=== PATIENT | female | born 1950 | race Caucasian/White ===

== ENCOUNTER → 2017-12-08 | Outpatient (CLI) | payer MEDICARE | END | disposition home or self-care (01) | LOC: LABWHC1 11:04 | PROVIDERS: ATTEND Internal Medicine Endocrinology, Diabetes & Metabolism | DX: E03.8 Other specified hypothyroidism (principal) | CPT/HCPCS: 36415; 84443 ==

== ENCOUNTER → 2018-06-10 | Outpatient (CLI) | payer MEDICARE ==
[2018-06-10 16:34] LABS: ACTH 14.8 pg/mL (0.00-45.99)
== END | disposition home or self-care (01) ==
LOC: LABWHC1 10:22
PROVIDERS: ATTEND Internal Medicine Endocrinology, Diabetes & Metabolism
DX: E03.8 Other specified hypothyroidism (principal); R53.83 Other fatigue
CPT/HCPCS: 36415; 82024; 82533; 82607; 84146; 84443

== ENCOUNTER 2018-06-22 02:24 | Emergency (ER) | payer MEDICARE ==
[2018-06-22] MEDS ORDERED: KETOROLAC 30 MG/ML 1 ML VIAL IVP STA (02:58)
[2018-06-22] MEDS ORDERED: AMPICILLIN-SULBACTAM 3 GM in SODIUM CHLORIDE 0.9% 100 ML IVPB STA (03:00)
--- NOTE | 2018-06-22 03:32 | XR ---
EXAMINATION TYPE: XR hand complete LT DATE OF EXAM: 06/22/2018 COMPARISON: NONE HISTORY: Cat bite on thumb TECHNIQUE: 3 views FINDINGS: There is moderate narrowing and spurring at the first carpometacarpal joint. I see no fract ure nor dislocation. There is some mild spurring at the IP joints. There are no erosions. IMPRESSION: No fracture seen. Osteoarthritic changes.
--- NOTE | 2018-06-22 03:36 | ED ---
Animal Bite HPI - General Chief Complaint: Animal Bite Stated Complaint: Cat Bite to Hand Time Seen by Provider: 06/22/18 02:43 Source: patient Mode of arrival: ambulatory Limitations: physical limitation - History of Present Illness Initial Comments: 67-year-old female patient with past medical history significant for hypothyroidism presents to the emergency department today for evaluation of increased pain and swelling to her hand after a Bite sustained Friday. Patient states this evening the area started to become red and swollen. Patient states pain woke her from sleep. States she is having pain radiating across her dorsal hand and into her forearm. She denies any fevers or chills with this. Denies any drainage from the wounds. Denies any nausea or vomiting. She denies any history of diabetes or conditions causing her to be immunocompromised. Patient denies any recent rash, shortness breath, chest pain, abdominal pain, nausea, vomiting, diarrhea, constipation, back pain, numbness, tingling, dizziness, weakness, hematuria, dysuria, urinary urgency, urinary frequency, headache, visual changes, or any other complaints. - Related Data Home Medications Medication Instructions Recorded Confirmed Thyroid,Pork [[place] Thyroid] 1 tab PO DIRECTED 09/28/15 09/28/15 Previous Rx's Medication Instructions Recorded Doxycycline Hyclate 100 mg PO Q12H #20 tab 06/22/18 Ibuprofen [Motrin] 600 mg PO Q8HR PRN #30 tab 06/22/18 Allergies Allergy/AdvReac Type Severity Reaction Status Date / Time No Known Allergies Allergy Verified 06/22/18 02:42 Review of Systems ROS Statement: Those systems with pertinent positive or pertinent negative responses have been documented in the HPI. ROS Other: All systems not noted in ROS Statement are negative. Past Medical History Past Medical History: Thyroid Disorder History of Any Multi-Drug Resistant Organisms: None Reported Past Surgical History: Joint Replacement, Orthopedic Surgery Additional Past Surgical History / Comment(s): breast reduction, abdominoplasty , carpal tunnel Past Psychological History: No Psychological Hx Reported Smoking Status: Never smoker Past Alcohol Use History: None Reported Past Drug Use History: None Reported General Exam Limitations: physical limitation General appearance: alert, in no apparent distress, other (This is a well- developed, well-nourished adult female patient in no acute distress. Vital signs upon presentation are temperature 98.4F, pulse 74, respirations 16, blood pressure 159/89, pulse ox 99% on room air.) Eye exam: Present: normal appearance, PERRL, EOMI. Absent: scleral icterus, conjunctival injection, periorbital swelling ENT exam: Present: normal exam, normal oropharynx, mucous membranes moist Respiratory exam: Present: normal lung sounds bilaterally. Absent: respiratory distress, wheezes, rales, rhonchi, stridor Cardiovascular Exam: Present: regular rate, normal rhythm, normal heart sounds. Absent: systolic murmur, diastolic murmur, rubs, gallop, clicks Extremities exam: Present: full ROM, normal capillary refill, other (Patient has swelling and erythema noted circumferentially to the left thumb. There is soft tissue swelling noted to the dorsal hand. There is faint erythematous streak extending up the volar aspect of the wrist proximally one third of the forearm. Skin is otherwise pink, warm, dry. Patient has full range of motion to the hand without increased pain. Radial pulses 2+ and equal bilaterally.). Absent: normal inspection, tenderness, pedal edema, joint swelling, calf tenderness Neurological exam: Present: alert, oriented X3, CN II-XII intact Psychiatric exam: Present: normal affect, normal mood Skin exam: Present: warm, dry, intact, normal color. Absent: rash Course Vital Signs 06/22/18 02:39 Temperature 98.4 F Pulse Rate 74 Respiratory 16 Rate Blood Pressure 159/89 O2 Sat by Pulse 99 Oximetry Medical Decision Making - Medical Decision Making 67-year-old female patient presents to the emergency department today for evaluation of left hand pain and swelling after sustaining a Bite on Friday morning. Physical examination did reveal swelling and redness surrounding the left thumb extending into the dorsal surface of the hand. Patient also had very faint erythematous streaking up the volar surface of the wrist. Neurovascular status is intact. Patient had full range of motion. Patient was given an IV dose of Unasyn and Toradol here in the department. Upon reevaluation she is feeling improved. She'll be discharged home with prescription for doxycycline, she states that Augmentin makes her sick. She is instructed to follow-up with her primary care physician for recheck in 1-2 days. Patient was given extensive education regarding return parameters. She verbalizes understanding and agrees with this plan - Radiology Data Radiology results: report reviewed, image reviewed 3 views of the left hand are obtained. Report was reviewed in its entirety. Impression by Dr. Fenton shows no fracture. Osteoarthritic changes. I did review the x-ray there is no evidence of foreign body or subcutaneous air. Disposition Clinical Impression: Cat bite involving extremity, Cellulitis Disposition: HOME SELF-CARE Condition: Good Instructions: Animal Bite (ED) Additional Instructions: Take medication as directed. Follow-up with the primary care physician for recheck in 1-2 days. Return immediately if he develops fever, vomiting, worsening pain, or worsening swelling. Return immediately for any other new, worsening, or concerning symptoms. Prescriptions: Doxycycline Hyclate 100 mg PO Q12H #20 tab Ibuprofen [Motrin] 600 mg PO Q8HR PRN #30 tab PRN Reason: Pain Is patient prescribed a controlled substance at d/c from ED?: No Referrals: Pola Kwok MD [Primary Care Provider] - 1-2 days Time of Disposition: 04:06
[2018-06-22] MEDS ORDERED: IBUPROFEN 600 MG STARTER PACK 4 TAB BTL PO STA (04:07)
[2018-06-22] MEDS ORDERED: AMOXIC-POT CLAV 875MG STARTER 2 EACH TABLET PO STA (04:07)
[2018-06-22 04:48] VITALS: BP 160/74; PULSE 62; RESP 20; TEMP 98.1
== END 2018-06-22 04:49 | disposition home or self-care (01) ==
LOC: EC 02:24
DX: L03.114 Cellulitis of left upper limb (principal); M19.042 Primary osteoarthritis, left hand; E07.9 Disorder of thyroid, unspecified; Z79.899 Other long term (current) drug therapy; W55.01XA Bitten by cat, initial encounter
CPT/HCPCS: 73130; 99283; 96365; 96375; J1885; J0295

== ENCOUNTER 2018-06-23 08:56 | Inpatient (IN) | payer MEDICARE ==
[2018-06-23] MEDS ORDERED: MORPHINE SULFATE 4 MG/ML SYRINGE IV STA (09:42)
[2018-06-23] MEDS ORDERED: AMPICILLIN-SULBACTAM 3 GM in SODIUM CHLORIDE 0.9% 100 ML IVPB STA (09:42)
[2018-06-23] MEDS ORDERED: SODIUM CHLORIDE 0.9% 1,000 ML IV ONE (09:42)
[2018-06-23] MEDS ORDERED: BENZOCAINE SPRAY 1 CAN TOPICAL STA (10:10)
--- NOTE | 2018-06-23 10:24 | ED ---
Skin/Abscess/FB HPI - General Chief complaint: Skin/Abscess/Foreign Body Stated complaint: cellulitis re-check Time Seen by Provider: 06/23/18 09:17 Source: patient, RN notes reviewed, old records reviewed Mode of arrival: ambulatory Limitations: no limitations - History of Present Illness Initial comments: 59-year-old female presents emergency department today with chief complaint of increased pain over her left hand. She was bit by a cat 3 days ago. She seen in the emergency department yesterday given a dose of IV Unasyn and discharged on oral Augmentin. She's been taking the Augmentin for the past day. She completed increased pain and swelling today. Patient states that she's had previous orthopedic hand surgery by Dr. Mari. Patient presents with concerns for worsening cellulitis. She's had no fevers or chills. She reports severe pain with flexion and extension of the left digits. - Related Data Home Medications Medication Instructions Recorded Confirmed Thyroid,Pork [[place] Thyroid] 60 mg PO DAILY 09/28/15 06/23/18 Amoxic-Pot Clav 875-125Mg 1 tab PO Q12HR 06/23/18 06/23/18 [Augmentin 875-125] Previous Rx's Medication Instructions Recorded Ibuprofen [Motrin] 600 mg PO Q8HR PRN #30 tab 06/22/18 Allergies Allergy/AdvReac Type Severity Reaction Status Date / Time No Known Allergies Allergy Verified 06/23/18 09:36 Review of Systems ROS Statement: Those systems with pertinent positive or pertinent negative responses have been documented in the HPI. ROS Other: All systems not noted in ROS Statement are negative. Past Medical History Past Medical History: Thyroid Disorder History of Any Multi-Drug Resistant Organisms: None Reported Past Surgical History: Joint Replacement, Orthopedic Surgery Additional Past Surgical History / Comment(s): breast reduction, abdominoplasty , carpal tunnel Past Psychological History: No Psychological Hx Reported Smoking Status: Never smoker Past Alcohol Use History: None Reported Past Drug Use History: None Reported General Exam - General Exam Comments Initial Comments: 59-year-old female. Alert and oriented. No distress. Limitations: no limitations General appearance: alert, in no apparent distress Head exam: Present: atraumatic, normocephalic, normal inspection Eye exam: Present: normal appearance, PERRL, EOMI. Absent: scleral icterus, conjunctival injection, periorbital swelling ENT exam: Present: normal exam, mucous membranes moist Neck exam: Present: normal inspection. Absent: tenderness, meningismus, lymphadenopathy Respiratory exam: Present: normal lung sounds bilaterally. Absent: respiratory distress, wheezes, rales, rhonchi, stridor Cardiovascular Exam: Present: regular rate, normal rhythm, normal heart sounds. Absent: systolic murmur, diastolic murmur, rubs, gallop, clicks GI/Abdominal exam: Present: soft, normal bowel sounds. Absent: distended, tenderness, guarding, rebound, rigid Extremities exam: Present: normal inspection, full ROM, normal capillary refill. Absent: tenderness, pedal edema, joint swelling, calf tenderness Left Upper Arm exam: Present: normal inspection, full ROM Elbow exam: Present: normal inspection, full ROM Forearm Wrist exam: Present: full ROM, tenderness, swelling, erythema (Patient has erythema and swelling over the dorsum of the hand. Pain with flexion and extension of the fingers.). Absent: normal inspection Hand Wrist exam: Present: tenderness, swelling. Absent: normal inspection Vascular: Present: normal capillary refill Back exam: Present: normal inspection Neurological exam: Present: alert, oriented X3, CN II-XII intact Psychiatric exam: Present: normal affect, normal mood Skin exam: Present: warm, dry, intact, normal color. Absent: rash Course Vital Signs 06/23/18 08:58 Temperature 98.0 F Pulse Rate 71 Respiratory 18 Rate Blood Pressure 165/62 O2 Sat by Pulse 99 Oximetry Medical Decision Making - Medical Decision Making Patient is a 67-year-old female who presents emergency department today with left wrist pain and swelling after being Bit by a cat 3 days ago. She was seen in the emergency department yesterday given a dose of IV Unasyn and oral Augmentin for discharge. She taken 2 doses of oral Augmentin. She comes today for persistent pain in the hand pain with range of motion of the fingers. Patient was informed that with outpatient treatment continuing to fail Patient will be admitted for IV antibiotics. She was a very difficult IV stick due to severe anxiety. She was given Ativan and a dose of morphine for pain management. X-ray does show some increased soft tissue swelling over the dorsum of the hand. Patient has had a normal white blood cell count. Normal lactic acid. She has previously seen Dr. Wilkinson for orthopedic hand injury and surgeries in the past. She will per request to see orthopedic associates. Patient was started on IV Unasyn. Dr. Lanza discussed the case with the KARLENE Orellana for Dr. Kwok. Patient will be admitted at this time with IV Unasyn, rest, ice and elevating the arm. And consult to infectious disease as well as orthopedics. - Lab Data Result diagrams: 06/23/18 12:32 06/23/18 09:57 Lab Results 06/23/18 06/23/18 06/23/18 Range/Units 09:57 09:57 12:32 WBC 10.4 (3.8-10.6) k/uL RBC 3.77 L (3.80-5.40) m/uL Hgb 11.7 (11.4-16.0) gm/dL Hct 35.3 (34.0-46.0) % MCV 93.6 (80.0-100.0) fL MCH 31.0 (25.0-35.0) pg MCHC 33.1 (31.0-37.0) g/dL RDW 12.6 (11.5-15.5) % Plt Count 224 (150-450) k/uL Neutrophils % 85 % Lymphocytes % 8 % Monocytes % 5 % Eosinophils % 1 % Basophils % 0 % Neutrophils # 8.8 H (1.3-7.7) k/uL Lymphocytes # 0.8 L (1.0-4.8) k/uL Monocytes # 0.5 (0-1.0) k/uL Eosinophils # 0.1 (0-0.7) k/uL Basophils # 0.0 (0-0.2) k/uL Sodium 140 (137-145) mmol/L Potassium 5.3 H (3.5-5.1) mmol/L Chloride 109 H (98-107) mmol/L Carbon Dioxide 27 (22-30) mmol/L Anion Gap 4 mmol/L BUN 15 (7-17) mg/dL Creatinine 0.58 (0.52-1.04) mg/dL Est GFR (CKD-EPI)AfAm >90 (>60 ml/min/1.73 sqM) Est GFR (CKD-EPI)NonAf >90 (>60 ml/min/1.73 sqM) Glucose 93 (74-99) mg/dL Plasma Lactic Acid Xander 1.1 (0.7-2.0) mmol/L Calcium 9.9 (8.4-10.2) mg/dL Total Bilirubin 0.9 (0.2-1.3) mg/dL AST 47 H (14-36) U/L ALT 39 (9-52) U/L Alkaline Phosphatase 55 (38-126) U/L Total Protein 6.9 (6.3-8.2) g/dL Albumin 4.3 (3.5-5.0) g/dL - Radiology Data Radiology results: report reviewed Demineralization is redemonstrated on x-ray. There is no acute fracture dislocation. Persistent moderate narrowing of the first metatarsal subchondral cystic space. Mild to moderate degenerative changes throughout the phalanges with narrowing of the PIP and DIP joints. There is mild to moderate diffuse subcutaneous edema present slightly more prominent from prior study near the wrist level. No suspicious vertical destruction. Ostial reaction is seen. Mild to moderate narrowing with radial side spurring seen in the first interphalangeal joint is again seen. This was read by Dr. Vaca Disposition Clinical Impression: Cat bite involving extremity, Cellulitis, Failure of outpatient treatment Disposition: ADMITTED IP TO THIS HOSP Condition: Stable Is patient prescribed a controlled substance at d/c from ED?: No Referrals: Pola Kwok MD [Primary Care Provider] - 1-2 days Time of Disposition: 13:06
[2018-06-23 10:27] LABS: ALT 39 U/L (9-52); AST 47 U/L (14-36); Albumin 4.3 g/dL (3.5-5.0); Alkaline Phosphatase 55 U/L (38-126); Anion Gap 4 mmol/L; Blood Urea Nitrogen 15 mg/dL (7-17); Calcium 9.9 mg/dL (8.4-10.2); Carbon Dioxide 27 mmol/L (22-30); Chloride 109 mmol/L (98-107); Glucose 93 mg/dL (74-99); Sodium 140 mmol/L (137-145); Total Bilirubin 0.9 mg/dL (0.2-1.3); Total Protein 6.9 g/dL (6.3-8.2)
[2018-06-23 10:33] LABS: Potassium 5.3 mmol/L (3.5-5.1)
[2018-06-23] MEDS ORDERED: LORazepam 1 MG TAB PO STA (10:56)
--- NOTE | 2018-06-23 11:31 | XR ---
EXAMINATION TYPE: XR hand complete LT DATE OF EXAM: 06/23/2018 CLINICAL HISTORY: Pain swelling and redness after catheter biting from 3 days ago. TECHNIQUE: Frontal, lateral and oblique images of the left hand are obtained. COMPARISON: Left hand x-ray from yesterday. FINDINGS: Demineralization is redemonstrated. There is no acute fracture/dislocation evident in the l eft hand. There is persistent moderate narrowing at base of first metacarpal with subchondral cystic change. Mild to moderate degenerative change throughout the phalanges with narrowing of the PIP and D IP joints is redemonstrated. Mild to moderate diffuse subcutaneous edema is present slightly more pro minent from prior study proximally near wrist level. No suspicious new cortical destruction or perios teal reaction is seen. Mild to moderate narrowing with radial side spurring first interphalangeal abbi nt is again seen. IMPRESSION: As above.
[2018-06-23 12:52] LABS: Basophils % (A) 0 %; Eosinophils # (A) 0.1 k/uL (0-0.7); Eosinophils % (A) 1 %; HCT 35.3 % (34.0-46.0); HGB 11.7 gm/dL (11.4-16.0); Lymphocytes # (A) 0.8 k/uL (1.0-4.8); Lymphocytes % (A) 8 %; MCHC 33.1 g/dL (31.0-37.0); MCV 93.6 fL (80.0-100.0); Mean Platelet Volume 7.9; Monocytes # (A) 0.5 k/uL (0-1.0); Monocytes % (A) 5 %; Neutrophils # (A) 8.8 k/uL (1.3-7.7); Neutrophils % (A) 85 %; Platelet Count 224 k/uL (150-450); RBC 3.77 m/uL (3.80-5.40); RDW 12.6 % (11.5-15.5); WBC 10.4 k/uL (3.8-10.6)
[2018-06-23] MEDS ORDERED: ONDANSETRON 4 MG/2 ML VIAL IVP PRN (13:06)
[2018-06-23] MEDS ORDERED: IBUPROFEN 400 MG TAB PO PRN (13:06)
[2018-06-23] MEDS ORDERED: NALOXONE 0.4 MG/ML 1 ML VIAL IV PRN (13:06)
[2018-06-23] MEDS: AMPICILLIN-SULBACTAM 3 GM in SODIUM CHLORIDE 0.9% 100 ML IVPB SCH ×2 (15:13→21:25)
[2018-06-23] MEDS: MORPHINE SULFATE 4 MG/ML SYRINGE IV PRN ×2 (15:13→20:11)
--- NOTE | 2018-06-23 15:35 | P.HPIM ---
History of Present Illness H&P Date: 06/23/18 Chief Complaint: Scratch failed outpatient treatment This is a 67-year-old pleasant female will be seeing Dr. Vaughan who will be establishing with Dr. Cummings in the clinic, healthy with history of hyperthyroidism, admitted to the emergency room after she was bitten by a cat 3 days ago most likely this Is to, and was started on Unasyn and discharged on Augmentin yesterday. Patient took the Augmentin for the past one day, she complained of increasing pain and swelling, this was a previous orthopedic surgery procedure performed by Dr. Mari in the past. Patient is now complaining of increasing difficulty in using the digits of the left hand secondary to swelling and redness. Patient denies any history off drug- resistant microbes in the past, no history of Raynaud's, no history of diabetes mellitus.. In emergency room, x-rays have been performed with significant subcutaneous edema, involving the PIP DIP, no osteomyelitis noted Review of Systems Constitutional: Reports as per HPI, Denies anorexia, Denies chills, Denies chronic headaches, Denies chronic pain, Denies daytime sleepiness, Denies fatigue, Denies fever, Denies lethargy, Denies malaise, Denies night sweats, Denies poor appetite, Denies sweats, Denies weakness, Denies weight gain, Denies weight loss Ears, nose, mouth and throat: Reports as per HPI, Denies ant. neck pain, Denies bleeding gums, Denies dental pain, Denies dysphagia, Denies epistaxis, Denies headache, Denies hoarseness, Denies mouth pain, Denies nasal congestion, Denies nasal discharge, Denies neck fullness/pressure, Denies neck lump, Denies nose pain, Denies odynophagia, Denies post-nasal drip, Denies sinus pain, Denies sinus pressure, Denies swelling in mouth, Denies swelling in throat, Denies sore throat, Denies vertigo, Denies voice changes Cardiovascular: Reports as per HPI Respiratory: Reports as per HPI, Denies congestion, Denies cough, Denies cough with sputum, Denies dyspnea, Denies excessive sputum, Denies hemoptysis, Denies home oxygen, Denies pain, Denies pain on inspiration, Denies pleurisy, Denies respiratory infections, Denies sleep apnea, Denies snoring, Denies wheezing Gastrointestinal: Reports as per HPI, Denies abdominal pain, Denies belching, Denies bloating, Denies BRBPR, Denies change in bowel habits, Denies coffee ground emesis, Denies constipation, Denies diarrhea, Denies dyspepsia, Denies early satiety, Denies excessive gas, Denies heartburn, Denies hematemesis, Denies hematochezia, Denies indigestion, Denies jaundice, Denies lactose intolerance, Denies loss of appetite, Denies melena, Denies nausea, Denies vomiting Genitourinary: Reports as per HPI, Denies abnormal vaginal bleeding, Denies decreased libido, Denies difficulty conceiving, Denies difficulty voiding, Denies dysmenorrhea, Denies dyspareunia, Denies dysuria, Denies flank pain, Denies genital sores, Denies hematuria, Denies hot flashes, Denies incomplete emptying, Denies kidney stones, Denies menorrhagia, Denies mixed incontinence, Denies nocturia, Denies pelvic pain, Denies post void dribbling, Denies , Denies prolapse symptoms, Denies stress incontinence, Denies urge incontinence , Denies urgency, Denies urinary frequency, Denies vaginal discharge, Denies vaginal dryness, Denies vaginal itching, Denies vaginal odor Menstruation: Reports as per HPI, Denies amenorrhea, Denies amenorrhea on BC, Denies currently menstrual, Denies cycle < 21 days, Denies cycle > 35 days, Denies cycle variable, Denies menses 1-7 days, Denies menses 8 or > days, Denies menses variable, Denies period heavy, Denies period light, Denies period normal, Denies period spotting, Denies post hysterectomy, Denies postmenopausal , Denies premenarcheal Musculoskeletal: Reports as per HPI Integumentary: Reports as per HPI, Reports color changes, Reports rash, Reports sores Neurological: Reports as per HPI, Denies aphasia, Denies ataxia, Denies balance difficulties, Denies burning pain, Denies change in mentation, Denies change in smell/taste, Denies change in speech, Denies confusion, Denies convulsions, Denies double vision, Denies gait dysfunction, Denies head injury, Denies headaches, Denies hearing difficulties, Denies lack of coordination, Denies loss of vision, Denies memory loss, Denies migraines, Denies motor disturbance, Denies numbness, Denies paralysis, Denies paresthesias, Denies seizures, Denies sensory deficit, Denies spasticity, Denies syncope, Denies tic, Denies tingling , Denies transient paralysis, Denies tremors, Denies vertigo, Denies weakness, Denies visual changes Psychiatric: Reports as per HPI, Denies anhedonia, Denies anxiety, Denies anxiety attacks, Denies change in appetite, Denies change in libido, Denies change in sleep habits, Denies confusion, Denies depression, Denies difficulty concentrating, Denies disorientation, Denies hallucinations, Denies hopelessness , Denies hypersomnia, Denies insomnia, Denies irritability, Denies memory loss, Denies mood swings, Denies paranoia, Denies sadness/tearfulness, Denies sleep disturbances, Denies suicidal ideation Endocrine: Reports as per HPI Hematologic/Lymphatic: Reports as per HPI Allergic/Immunologic: Reports as per HPI, Denies allergic rhinitis, Denies anaphylaxis, Denies angioedema, Denies gluten intolerance, Denies persistent infections, Denies seasonal allergies, Denies urticaria, Denies wheezing Past Medical History Past Medical History: Eye Disorder, Osteoarthritis (OA), Thyroid Disorder Additional Past Medical History / Comment(s): Pt states she recently had bilateral eye retinal problems (R retina started to tear but readhered itself and L retina started to tear and developed a hole in it but she was told it was healing), arthritis in multiple joints, spur in R ankle, sciatica R side with R foot numbness and R leg spasms. History of Any Multi-Drug Resistant Organisms: None Reported Past Surgical History: Joint Replacement, Orthopedic Surgery Additional Past Surgical History / Comment(s): Bilateral breast reduction, abdominoplasty, L carpal tunnel release, L knee arthroscopy, L knee partial replacement. Past Anesthesia/Blood Transfusion Reactions: No Reported Reaction Smoking Status: Never smoker - Past Family History Father History Unknown: Yes Mother Family Medical History: Liver Disease Additional Family Medical History / Comment(s): Mother had hepatitis d/t a complication with anesthesia, she also had ulcers. Medications and Allergies Home Medications Medication Instructions Recorded Confirmed Type Thyroid,Pork [[place] Thyroid] 60 mg PO DAILY 09/28/15 06/23/18 History Ibuprofen [Motrin] 600 mg PO Q8HR PRN #30 tab 06/22/18 06/23/18 Rx Amoxic-Pot Clav 875-125Mg 1 tab PO Q12HR 06/23/18 06/23/18 History [Augmentin 875-125] Allergies Allergy/AdvReac Type Severity Reaction Status Date / Time No Known Allergies Allergy Verified 06/23/18 09:36 Physical Exam Vitals: Vital Signs Temp Pulse Resp BP Pulse Ox 06/23/18 13:46 145/76 06/23/18 08:58 98.0 F 71 18 165/62 99 Intake and Output 06/23/18 06/23/18 06/23/18 06:59 14:59 22:59 Other: Weight 49.442 kg - Constitutional General appearance: cooperative, thin - Neck Neck: normal ROM - Respiratory Respiratory: bilateral: CTA, negative: diminished, dullness - Cardiovascular Rhythm: regular Heart sounds: normal: S1, S2 Abnormal Heart Sounds: no systolic murmur, no diastolic murmur, no rub, no S3 Gallop, no S4 Gallop, no click, no other - Gastrointestinal General gastrointestinal: normal bowel sounds, soft - Integumentary Integumentary: cellulitis (Circumferential redness involving the volar aspect of the arm), decreased turgor, normal - Neurologic Neurologic: CNII-XII intact, focal deficits - Musculoskeletal Musculoskeletal: gait normal - Psychiatric Psychiatric: A&O x's 3, appropriate affect, intact judgment & insight Results CBC & Chem 7: 06/23/18 12:32 06/23/18 09:57 Labs: Abnormal Lab Results - Last 24 Hours (Table) 06/23/18 06/23/18 Range/Units 09:57 12:32 RBC 3.77 L (3.80-5.40) m/uL Neutrophils # 8.8 H (1.3-7.7) k/uL Lymphocytes # 0.8 L (1.0-4.8) k/uL Potassium 5.3 H (3.5-5.1) mmol/L Chloride 109 H (98-107) mmol/L AST 47 H (14-36) U/L Laboratory Results WBC 10.4 k/uL (3.8-10.6) 06/23/18 12:32 RBC 3.77 m/uL (3.80-5.40) L 06/23/18 12:32 Hgb 11.7 gm/dL (11.4-16.0) 06/23/18 12:32 Hct 35.3 % (34.0-46.0) 06/23/18 12:32 MCV 93.6 fL (80.0-100.0) 06/23/18 12:32 MCH 31.0 pg (25.0-35.0) 06/23/18 12: MCHC 33.1 g/dL (31.0-37.0) 06/23/18 12:32 RDW 12.6 % (11.5-15.5) 06/23/18 12:32 Plt Count 224 k/uL (150-450) 06/23/18 12:32 Neutrophils % 85 % 06/23/18 12:32 Lymphocytes % 8 % 06/23/18 12:32 Monocytes % 5 % 06/23/18 12:32 Eosinophils % 1 % 06/23/18 12:32 Basophils % 0 % 06/23/18 12:32 Neutrophils # 8.8 k/uL (1.3-7.7) H 06/23/18 12:32 Lymphocytes # 0.8 k/uL (1.0-4.8) L 06/23/18 12:32 Monocytes # 0.5 k/uL (0-1.0) 06/23/18 12:32 Eosinophils # 0.1 k/uL (0-0.7) 06/23/18 12:32 Basophils # 0.0 k/uL (0-0.2) 06/23/18 12:32 Sodium 140 mmol/L (137-145) 06/23/18 09:57 Potassium 5.3 mmol/L (3.5-5.1) H 06/23/18 09:57 Chloride 109 mmol/L (98-107) H 06/23/18 09:57 Carbon Dioxide 27 mmol/L (22-30) 06/23/18 09:57 Anion Gap 4 mmol/L 06/23/18 09:57 BUN 15 mg/dL (7-17) 06/23/18 09:57 Creatinine 0.58 mg/dL (0.52-1.04) 06/23/18 09:57 Est GFR (CKD-EPI)AfAm >90 (>60 ml/min/1.73 sqM) 06/23/18 09:57 Est GFR (CKD-EPI)NonAf >90 (>60 ml/min/1.73 sqM) 06/23/18 09:57 Glucose 93 mg/dL (74-99) 06/23/18 09:57 Plasma Lactic Acid Xander 1.1 mmol/L (0.7-2.0) 06/23/18 09:57 Calcium 9.9 mg/dL (8.4-10.2) 06/23/18 09:57 Total Bilirubin 0.9 mg/dL (0.2-1.3) 06/23/18 09:57 AST 47 U/L (14-36) H 06/23/18 09:57 ALT 39 U/L (9-52) 06/23/18 09:57 Alkaline Phosphatase 55 U/L (38-126) 06/23/18 09:57 Total Protein 6.9 g/dL (6.3-8.2) 06/23/18 09:57 Albumin 4.3 g/dL (3.5-5.0) 06/23/18 09:57 Thrombosis Risk Factor Assmnt - Choose All That Apply Any of the Below Risk Factors Present?: Yes Other Risk Factors: Yes Each Risk Factor Represents 2 Points: Age 61-74 years Other congenital or acquired thrombophilia - If yes, enter type in comment: No Thrombosis Risk Factor Assessment Total Risk Factor Score: 2 Thrombosis Risk Factor Assessment Level: Low Risk Assessment and Plan Plan: 1. Bite with cellulitis, patient is started on Unasyn, failed Augmentin given on it for one day duration, patient of this infarct in consultation by infectious disease, arm elevation, to avoid compartment syndrome involving digits, monitor for worsening cellulitis, consult were made with Dr. Guillory and Dr. Jacey Aguirre for pain as well as morphine for when necessary pain, tetanus vaccine needs to be updated during this admission 2. Hypothyroidism currently stable on [place] thyroid 60 mg daily no changes made. GI prophylaxis DVT prophylaxis provided Mild anemia Hyperkalemia, fluids for hydration Elevated liver function tests possibly related to Britt continue to monitor
[2018-06-23] MEDS ORDERED: LIDOCAINE 4% CREAM 5 GM TUBE TOPICAL PRN (15:50)
[2018-06-23] MEDS ORDERED: DIPH,PERTUS(ACELL)TETVAC-LF 0.5 ML VIAL IM ONE (18:31)
[2018-06-23] MEDS: KETOROLAC 30 MG/ML 1 ML VIAL IVP PRN (18:57)
[2018-06-23] MEDS: TRIAMCINOLONE ACET 0.5% CREAM 15 GM TUBE TOPICAL SCH (20:12)
[2018-06-23] MEDS: SODIUM CHLORIDE 0.9% 1,000 ML IV SCH ×2 (21:23→21:25)
[2018-06-24] MEDS: AMPICILLIN-SULBACTAM 3 GM in SODIUM CHLORIDE 0.9% 100 ML IVPB SCH ×4 (03:47→21:46)
[2018-06-24] MEDS: MORPHINE SULFATE 4 MG/ML SYRINGE IV PRN (03:59)
[2018-06-24] MEDS: KETOROLAC 30 MG/ML 1 ML VIAL IVP PRN (05:59)
[2018-06-24] MEDS: SODIUM CHLORIDE 0.9% 1,000 ML IV SCH ×3 (06:00→17:17)
[2018-06-24] MEDS: ACETAMINOPHEN TAB 325 MG TAB PO PRN ×2 (06:06→17:11)
[2018-06-24] MEDS: PANTOPRAZOLE 40 MG/10 ML VIAL IV SCH (08:20)
[2018-06-24] MEDS: TRIAMCINOLONE ACET 0.5% CREAM 15 GM TUBE TOPICAL SCH ×2 (08:22→21:46)
[2018-06-24 09:09] LABS: Basophils % (A) 0 %; Eosinophils # (A) 0.1 k/uL (0-0.7); Eosinophils % (A) 1 %; HCT 31.9 % (34.0-46.0); HGB 10.2 gm/dL (11.4-16.0); Lymphocytes % (A) 14 %; MCH 30.8 pg (25.0-35.0); MCV 96.3 fL (80.0-100.0); Mean Platelet Volume 7.3; Monocytes # (A) 0.4 k/uL (0-1.0); Monocytes % (A) 5 %; Neutrophils # (A) 5.5 k/uL (1.3-7.7); Neutrophils % (A) 78 %; Platelet Count 215 k/uL (150-450); RBC 3.31 m/uL (3.80-5.40); RDW 12.5 % (11.5-15.5)
[2018-06-24 09:21] LABS: ALT 34 U/L (9-52); AST 19 U/L (14-36); Albumin 2.9 g/dL (3.5-5.0); Alkaline Phosphatase 43 U/L (38-126); Anion Gap 2 mmol/L; Blood Urea Nitrogen 13 mg/dL (7-17); C Reactive Protein 74.3 mg/L (<10.0); Calcium 8.7 mg/dL (8.4-10.2); Carbon Dioxide 28 mmol/L (22-30); Chloride 108 mmol/L (98-107); Glucose 147 mg/dL (74-99); Potassium 3.9 mmol/L (3.5-5.1); Sodium 138 mmol/L (137-145); Total Bilirubin 0.5 mg/dL (0.2-1.3); Total Protein 5.1 g/dL (6.3-8.2)
--- NOTE | 2018-06-24 10:27 | P.CONS ---
History of Present Illness - Reason for Consult Consult date: 06/24/18 Cellulitis, cat bite - History of Present Illness This is a 67-year-old female gives history that she brought one of their barn cats in the house and was calling the vet to have that cat put down as it was 17 years old and not doing well. She was trying to give the cat a piece of cheese and it bit her thumb instead of the cheese. Patient states she initially only had swelling on her thumb but then she had a red line going up to her wrist and came into [facility] emergency center on June 22 for evaluation. Hand x-ray showed no acute fracture. Osteoarthritic changes. She was given 1 dose of IV Unasyn and provided a prescription for Augmentin and ibuprofen and follow-up with her primary care. Patient states she took 2 doses of the Augmentin but the swelling continued into the dorsal part of her hand and was spreading to her wrist. She thought she had a fever last evening and was shaking. She came back into [facility] emergency center for evaluation. She has been afebrile, vital signs have been stable, repeat hand x-ray showed demineralization is redemonstrated. No acute fracture dislocation. Subchondral cystic change in the first metacarpal. Mild to moderate degenerative change throughout the phalanges. [id number] diffuse a cutaneous edema slightly more prominent than prior study. No suspicious cortical destruction or periostial reaction. Patient was started on Unasyn and Kenalog cream and admitted to the surgical/ pediatric unit. Patient does state that the redness and swelling are improved from yesterday and red line streaking is better. She does complain of a headache. Appetite is about the same as normal. She's had no vomiting or diarrhea. No fever or chills. Patient will determine last tetanus immunization. Review of Systems All systems: negative Constitutional: Reports chills, Reports fever, Denies chronic headaches, Denies chronic pain, Denies poor appetite, Denies weight loss Eyes: denies blurred vision, denies pain Ears, nose, mouth and throat: Reports headache, Denies dental pain, Denies dysphagia, Denies mouth pain, Denies nasal congestion, Denies nasal discharge, Denies sore throat, Denies vertigo Cardiovascular: Denies chest pain, Denies decreased exercise tolerance, Denies dyspnea on exertion, Denies edema, Denies leg edema, Denies shortness of breath , Denies syncope Respiratory: Denies cough, Denies cough with sputum, Denies dyspnea, Denies excessive sputum, Denies hemoptysis, Denies home oxygen, Denies wheezing Gastrointestinal: Denies abdominal pain, Denies diarrhea, Denies loss of appetite, Denies nausea, Denies vomiting Genitourinary: Denies dysuria, Denies hematuria, Denies urinary frequency Musculoskeletal: Denies frequent falls, Denies gait dysfunction, Denies myalgias Integumentary: Reports color changes, Reports wounds, Denies pruritus, Denies rash Neurological: Denies aphasia, Denies change in mentation, Denies change in speech, Denies gait dysfunction, Denies head injury, Denies numbness, Denies seizures, Denies weakness Psychiatric: Denies anxiety, Denies depression Endocrine: Denies fatigue, Denies weight change Past Medical History Past Medical History: Eye Disorder, Osteoarthritis (OA), Thyroid Disorder Additional Past Medical History / Comment(s): Pt states she recently had bilateral eye retinal problems (R retina started to tear but readhered itself and L retina started to tear and developed a hole in it but she was told it was healing), arthritis in multiple joints, spur in R ankle, sciatica R side with R foot numbness and R leg spasms. History of Any Multi-Drug Resistant Organisms: None Reported Past Surgical History: Joint Replacement, Orthopedic Surgery Additional Past Surgical History / Comment(s): Bilateral breast reduction, abdominoplasty, L carpal tunnel release, L knee arthroscopy, L knee partial replacement. Past Anesthesia/Blood Transfusion Reactions: No Reported Reaction Smoking Status: Never smoker Additional Past Alcohol Use History / Comment(s): Patient has been a lifelong nonsmoker. She denies any marijuana or street drug use. She was at home with her . They have 5 barn cats, 2 dogs and 2 horses. - Past Family History Father History Unknown: Yes Mother Family Medical History: Liver Disease Additional Family Medical History / Comment(s): Mother had hepatitis d/t a complication with anesthesia, she also had ulcers. Medications and Allergies Home Medications Medication Instructions Recorded Confirmed Type Thyroid,Pork [[place] Thyroid] 60 mg PO DAILY 09/28/15 06/23/18 History Ibuprofen [Motrin] 600 mg PO Q8HR PRN #30 tab 06/22/18 06/23/18 Rx Amoxic-Pot Clav 875-125Mg 1 tab PO Q12HR 06/23/18 06/23/18 History [Augmentin 875-125] Allergies Allergy/AdvReac Type Severity Reaction Status Date / Time No Known Allergies Allergy Verified 06/23/18 17:17 Physical Exam Vitals: Vital Signs Temp Pulse Pulse Resp BP BP Pulse Ox 06/24/18 08:21 98.4 F 71 16 115/65 95 06/24/18 06:15 99.5 F 06/23/18 23:25 98.3 F 79 16 130/62 100 06/23/18 19:00 98.7 F 82 18 132/67 100 06/23/18 15:00 97.9 F 72 14 146/72 100 06/23/18 13:55 98.0 F 71 18 145/76 99 06/23/18 13:46 145/76 Intake and Output 06/23/18 06/24/18 06/24/18 22:59 06:59 14:59 Intake Total 460 580 Balance 460 580 Intake: Oral 460 580 Other: # Voids 2 1 Gen: This is a 67-year-old female. She is sitting up in bed and appears become 12 and in no acute distress. Patient's is at the bedside. HEENT: Head is atraumatic, normocephalic. Pupils equal, round. Sclerae is anicteric. Conjunctiva pink. As of the mouth are moist. No thrush noted. NECK: Supple. No JVD. No lymphadenopathy. No thyromegaly. LUNGS: Clear to auscultation. No wheezes or rhonchi. No intercostal retractions. HEART: Regular rate and rhythm. No murmur. ABDOMEN: Soft. Bowel sounds are present. No masses. No tenderness. EXTREMITIES: No pedal edema. No calf tenderness. Dorsalis pedis +2 bilaterally. To the left hand patient has swelling to the dorsal surface of the left hand with erythema into the radial side of the wrist. No open wounds or drainage. No fall order. NEUROLOGICAL: Patient is awake, alert and oriented x3. Cranial nerves 2 through 12 are grossly intact. Results Results: Laboratory Results WBC 7.0 k/uL (3.8-10.6) 06/24/18 08:52 RBC 3.31 m/uL (3.80-5.40) L 06/24/18 08:52 Hgb 10.2 gm/dL (11.4-16.0) L 06/24/18 08:52 Hct 31.9 % (34.0-46.0) L 06/24/18 08:52 MCV 96.3 fL (80.0-100.0) 06/24/18 08:52 MCH 30.8 pg (25.0-35.0) 06/24/18 08:52 MCHC 32.0 g/dL (31.0-37.0) 06/24/18 08:52 RDW 12.5 % (11.5-15.5) 06/24/18 08:52 Plt Count 215 k/uL (150-450) 06/24/18 08:52 Neutrophils % 78 % 06/24/18 08:52 Lymphocytes % 14 % 06/24/18 08:52 Monocytes % 5 % 06/24/18 08:52 Eosinophils % 1 % 06/24/18 08:52 Basophils % 0 % 06/24/18 08:52 Neutrophils # 5.5 k/uL (1.3-7.7) 06/24/18 08:52 Lymphocytes # 1.0 k/uL (1.0-4.8) 06/24/18 08:52 Monocytes # 0.4 k/uL (0-1.0) 06/24/18 08:52 Eosinophils # 0.1 k/uL (0-0.7) 06/24/18 08:52 Basophils # 0.0 k/uL (0-0.2) 06/24/18 08:52 Sodium 138 mmol/L (137-145) 06/24/18 08:52 Potassium 3.9 mmol/L (3.5-5.1) 06/24/18 08:52 Chloride 108 mmol/L (98-107) H 06/24/18 08:52 Carbon Dioxide 28 mmol/L (22-30) 06/24/18 08:52 Anion Gap 2 mmol/L 06/24/18 08:52 BUN 13 mg/dL (7-17) 06/24/18 08:52 Creatinine 0.54 mg/dL (0.52-1.04) 06/24/18 08:52 Est GFR (CKD-EPI)AfAm >90 (>60 ml/min/1.73 sqM) 06/24/18 08:52 Est GFR (CKD-EPI)NonAf >90 (>60 ml/min/1.73 sqM) 06/24/18 08:52 Glucose 147 mg/dL (74-99) H 06/24/18 08:52 Plasma Lactic Acid Xander 1.1 mmol/L (0.7-2.0) 06/23/18 09:57 Calcium 8.7 mg/dL (8.4-10.2) 06/24/18 08:52 Total Bilirubin 0.5 mg/dL (0.2-1.3) 06/24/18 08:52 AST 19 U/L (14-36) 06/24/18 08:52 ALT 34 U/L (9-52) 06/24/18 08:52 Alkaline Phosphatase 43 U/L (38-126) 06/24/18 08:52 C-Reactive Protein 74.3 mg/L (<10.0) H 06/24/18 08:52 Total Protein 5.1 g/dL (6.3-8.2) L 06/24/18 08:52 Albumin 2.9 g/dL (3.5-5.0) L 06/24/18 08:52 CBC & Chem 7: 06/24/18 08:52 06/24/18 08:52 Labs: Abnormal Lab Results - Last 24 Hours (Table) 06/23/18 06/23/18 06/24/18 Range/Units 09:57 12:32 08:52 RBC 3.77 L 3.31 L (3.80-5.40) m/uL Hgb 10.2 L (11.4-16.0) gm/dL Hct 31.9 L (34.0-46.0) % Neutrophils # 8.8 H (1.3-7.7) k/uL Lymphocytes # 0.8 L (1.0-4.8) k/uL Potassium 5.3 H (3.5-5.1) mmol/L Chloride 109 H (98-107) mmol/L Glucose (74-99) mg/dL AST 47 H (14-36) U/L C-Reactive Protein (<10.0) mg/L Total Protein (6.3-8.2) g/dL Albumin (3.5-5.0) g/dL 06/24/18 Range/Units 08:52 RBC (3.80-5.40) m/uL Hgb (11.4-16.0) gm/dL Hct (34.0-46.0) % Neutrophils # (1.3-7.7) k/uL Lymphocytes # (1.0-4.8) k/uL Potassium (3.5-5.1) mmol/L Chloride 108 H (98-107) mmol/L Glucose 147 H (74-99) mg/dL AST (14-36) U/L C-Reactive Protein 74.3 H (<10.0) mg/L Total Protein 5.1 L (6.3-8.2) g/dL Albumin 2.9 L (3.5-5.0) g/dL Assessment and Plan Plan: This is a 67-year-old female who presents to hospital with a exit SITE to the left hand with surrounding cellulitis. Patient is currently on Unasyn which will be continued. Local wound care will be addressed, elevation of the left hand. Patient to determine her last tetanus immunization. Continue supportive care. Further recommendations as patient progresses. The above dictated assessment and findings were discussed with Dr. Guillory. The impression and plan of care have been directed as dictated. Wendy Mckeon nurse practitioner acting as scribe for Dr. Guillory.
--- NOTE | 2018-06-24 11:00 | P.CNOR ---
History of Present Illness - HPI Consult date: 06/24/18 History of present illness: This is a 67-year-old female who is admitted for cellulitis of the left hand. Patient states that she was taking her 17-year-old barn cat to the vet to be put down on 06/20/2018. Patient states that she offered the cat a piece of cheese and the cat bit her hand instead of the cheese. Patient states that the area became swollen and red so she went to the emergency room on 06/22/2018 and was treated with one dose of IV antibiotics and sent home on Augmentin. Patent states that her symptoms worsened overnight so she went back to the emergency room and was then admitted and started on Unasyn. Patient reports improvement in pain and swelling today. Patient states that she was unable to studio coordinator the fingers of the left hand yesterday, but is now able to. Patient states that the redness that was spreading up her arm has also improved. Patient denies any fever/chills, numbness, weakness or tingling. Review of Systems See HPI. Past Medical History Past Medical History: Eye Disorder, Osteoarthritis (OA), Thyroid Disorder Additional Past Medical History / Comment(s): Pt states she recently had bilateral eye retinal problems (R retina started to tear but readhered itself and L retina started to tear and developed a hole in it but she was told it was healing), arthritis in multiple joints, spur in R ankle, sciatica R side with R foot numbness and R leg spasms. History of Any Multi-Drug Resistant Organisms: None Reported Past Surgical History: Joint Replacement, Orthopedic Surgery Additional Past Surgical History / Comment(s): Bilateral breast reduction, abdominoplasty, L carpal tunnel release, L knee arthroscopy, L knee partial replacement. Past Anesthesia/Blood Transfusion Reactions: No Reported Reaction Smoking Status: Never smoker Additional Past Alcohol Use History / Comment(s): Patient has been a lifelong nonsmoker. She denies any marijuana or street drug use. She was at home with her . They have 5 barn cats, 2 dogs and 2 horses. - Past Family History Father History Unknown: Yes Mother Family Medical History: Liver Disease Additional Family Medical History / Comment(s): Mother had hepatitis d/t a complication with anesthesia, she also had ulcers. Medications and Allergies Home Medications Medication Instructions Recorded Confirmed Type Thyroid,Pork [[place] Thyroid] 60 mg PO DAILY 09/28/15 06/23/18 History Ibuprofen [Motrin] 600 mg PO Q8HR PRN #30 tab 06/22/18 06/23/18 Rx Amoxic-Pot Clav 875-125Mg 1 tab PO Q12HR 06/23/18 06/23/18 History [Augmentin 875-125] Allergies Allergy/AdvReac Type Severity Reaction Status Date / Time No Known Allergies Allergy Verified 06/23/18 17:17 Physical Examination On exam the patient is resting comfortably in bed in no acute distress. Patient is alert and oriented x3. There is mild swelling over the left thumb and dorsum of the left hand. There is mild erythema in this area. There is a very small puncture wound to the medial aspect of the left thumb with no drainage or fluctuance. Patinet has good range of motion of the fingers of the left hand. There is mild tenderness to palpation over the dorsum of the hand, but no tenderness to palpation over the palm, fingers or left forearm. Sensation intact. Radial pulse 2+. Capillary refill is normal at less than 2 seconds. Neurovascular status and circulatory status intact. Results X-rays of the left hand are reviewed and are negative for fracture or dislocation. - Labs Labs: Abnormal Lab Results - Last 24 Hours (Table) 06/23/18 06/24/18 06/24/18 Range/Units 12:32 08:52 08:52 RBC 3.77 L 3.31 L (3.80-5.40) m/uL Hgb 10.2 L (11.4-16.0) gm/dL Hct 31.9 L (34.0-46.0) % Neutrophils # 8.8 H (1.3-7.7) k/uL Lymphocytes # 0.8 L (1.0-4.8) k/uL Chloride 108 H (98-107) mmol/L Glucose 147 H (74-99) mg/dL C-Reactive Protein 74.3 H (<10.0) mg/L Total Protein 5.1 L (6.3-8.2) g/dL Albumin 2.9 L (3.5-5.0) g/dL H & H 06/23/18 06/24/18 Range/Units 12:32 08:52 Hgb 11.7 10.2 L (11.4-16.0) gm/dL Hct 35.3 31.9 L (34.0-46.0) % Result Diagrams: 06/24/18 08:52 06/24/18 08:52 Assessment and Plan Assessment: Eye disorder Osteoarthritis Thyroid disorder (1) Cat bite involving extremity Current Visit: Yes Status: Acute Code(s): UBC1741 - SNOMED Code(s): 481597922 (2) Cellulitis Current Visit: Yes Status: Acute Code(s): L03.90 - CELLULITIS, UNSPECIFIED SNOMED Code(s): 471500888 (3) Failure of outpatient treatment Current Visit: Yes Status: Acute Code(s): Z78.9 - OTHER SPECIFIED HEALTH STATUS SNOMED Code(s): 988767523 Plan: #1. Rest and elevate the left hand. #2. K-pad or warm compresses as tolerated. #3. Continue antibiotics and pain control. #4. No surgical intervention planned. Will continue to follow.
[2018-06-24 11:09] LABS: Erythrocyte Sedimentation Rate 20 mm/hr (0-20)
[2018-06-24] MEDS: KETOROLAC 30 MG/ML 1 ML VIAL IVP SCH ×3 (12:01→23:18)
--- NOTE | 2018-06-24 23:53 | P.CON ---
Consult Note - . Consult date: 06/24/18 Assessment/Plan:: This is a 67-year-old female gives history that she brought one of their barn cats in the house and was calling the vet to have that cat put down as it was 17 years old and not doing well. She was trying to give the cat a piece of cheese and it bit her thumb instead of the cheese. Patient states she initially only had swelling on her thumb but then she had a red line going up to her wrist and came into [facility] emergency center on June 22 for evaluation. Hand x-ray showed no acute fracture. Osteoarthritic changes. She was given 1 dose of IV Unasyn and provided a prescription for Augmentin and ibuprofen and follow-up with her primary care. Patient states she took 2 doses of the Augmentin but the swelling continued into the dorsal part of her hand and was spreading to her wrist. She thought she had a fever last evening and was shaking. She came back into [facility] emergency center for evaluation. She has been afebrile, vital signs have been stable, repeat hand x-ray showed demineralization is redemonstrated. No acute fracture dislocation. Subchondral cystic change in the first metacarpal. Mild to moderate degenerative change throughout the phalanges. [id number] diffuse a cutaneous edema slightly more prominent than prior study. No suspicious cortical destruction or periostial reaction. Patient was started on Unasyn and Kenalog cream and admitted to the surgical/ pediatric unit. Patient does state that the redness and swelling are improved from yesterday and red line streaking is better. She does complain of a headache. Appetite is about the same as normal. She's had no vomiting or diarrhea. No fever or chills. Patient will determine last tetanus immunization. Please consult as dictated by nurse practitioner Wendy Jamisoncarla. This pleasant woman severed a cat bite from her cat while she is trying to feed it's cheese. The cat has been put down. The patient continues to have a significant amount of swelling and pain although it is improved since admission. She isn't ascending lymphangitis with evidence of a swollen left epitrochlear lymph node IS with a lymphangitis also occurring. For now continue local wound care, antibiotic therapy with Unasyn, pain control with Toradol. Maneuvers to elevate the arm are done and it is wrapped with an [place] wrap hopefully to improve her edema and discomfort. If the strep is not tolerable it may be removed. I agree with evaluation, assessment and plan as dictated by nurse practitioner Mrs. Wendy Mckeon.
[2018-06-25] MEDS: SODIUM CHLORIDE 0.9% 1,000 ML IV SCH (02:12)
[2018-06-25] MEDS: ACETAMINOPHEN TAB 325 MG TAB PO PRN (03:24)
[2018-06-25] MEDS: AMPICILLIN-SULBACTAM 3 GM in SODIUM CHLORIDE 0.9% 100 ML IVPB SCH ×4 (03:28→21:50)
[2018-06-25] MEDS: KETOROLAC 30 MG/ML 1 ML VIAL IVP SCH ×3 (06:01→17:40)
[2018-06-25] MEDS: PANTOPRAZOLE 40 MG/10 ML VIAL IV SCH (08:22)
[2018-06-25 09:22] LABS: Basophils % (A) 0 %; Eosinophils # (A) 0.1 k/uL (0-0.7); Eosinophils % (A) 1 %; HCT 32.8 % (34.0-46.0); HGB 10.4 gm/dL (11.4-16.0); Hypochromasia Slight; Lymphocytes # (A) 0.9 k/uL (1.0-4.8); Lymphocytes % (A) 16 %; MCH 31.1 pg (25.0-35.0); MCHC 31.6 g/dL (31.0-37.0); MCV 98.5 fL (80.0-100.0); Mean Platelet Volume 8.4; Monocytes # (A) 0.3 k/uL (0-1.0); Monocytes % (A) 5 %; Neutrophils # (A) 4.2 k/uL (1.3-7.7); Neutrophils % (A) 76 %; Platelet Count 192 k/uL (150-450); RBC 3.33 m/uL (3.80-5.40); RDW 12.7 % (11.5-15.5); WBC 5.5 k/uL (3.8-10.6)
[2018-06-25 09:31] LABS: ALT 217 U/L (9-52); AST 245 U/L (14-36); Albumin 2.9 g/dL (3.5-5.0); Alkaline Phosphatase 75 U/L (38-126); Anion Gap 2 mmol/L; Blood Urea Nitrogen 13 mg/dL (7-17); Calcium 8.5 mg/dL (8.4-10.2); Carbon Dioxide 27 mmol/L (22-30); Chloride 112 mmol/L (98-107); Glucose 109 mg/dL (74-99); Potassium 4.1 mmol/L (3.5-5.1); Sodium 141 mmol/L (137-145); Total Bilirubin 0.4 mg/dL (0.2-1.3)
--- NOTE | 2018-06-25 10:55 | P.PN ---
Subjective Progress Note Date: 06/24/18 This is a 67-year-old pleasant female will be seeing Dr. Vaughan who will be establishing with Dr. Cummings in the clinic, healthy with history of hyperthyroidism, admitted to the emergency room after she was bitten by a cat 3 days ago most likely this Is to, and was started on Unasyn and discharged on Augmentin yesterday. Patient took the Augmentin for the past one day, she complained of increasing pain and swelling, this was a previous orthopedic surgery procedure performed by Dr. Mari in the past. Patient is now complaining of increasing difficulty in using the digits of the left hand secondary to swelling and redness. Patient denies any history off drug- resistant microbes in the past, no history of Raynaud's, no history of diabetes mellitus.. In emergency room, x-rays have been performed with significant subcutaneous edema, involving the PIP DIP, no osteomyelitis noted 06/25: Patient states the edema and redness on the left hand is improving. She does have elevated on pillows. Consult with Dr. Guillory is appreciated. Patient is continued on Unasyn. Irving wrapping added to help with edema. We have changed Toradol to scheduled [id number]. Review of Systems Constitutional: Reports as per HPI, Denies anorexia, Denies chills, Denies chronic headaches, Denies chronic pain, Denies daytime sleepiness, Denies fatigue, Denies fever, Denies lethargy, Denies malaise, Denies night sweats, Denies poor appetite, Denies sweats, Denies weakness, Denies weight gain, Denies weight loss Ears, nose, mouth and throat: Reports as per HPI, Denies ant. neck pain, Denies bleeding gums, Denies dental pain, Denies dysphagia, Denies epistaxis, Denies headache, Denies hoarseness, Denies mouth pain, Denies nasal congestion, Denies nasal discharge, Denies neck fullness/pressure, Denies neck lump, Denies nose pain, Denies odynophagia, Denies post-nasal drip, Denies sinus pain, Denies sinus pressure, Denies swelling in mouth, Denies swelling in throat, Denies sore throat, Denies vertigo, Denies voice changes Cardiovascular: Reports as per HPI Respiratory: Reports as per HPI, Denies congestion, Denies cough, Denies cough with sputum, Denies dyspnea, Denies excessive sputum, Denies hemoptysis, Denies home oxygen, Denies pain, Denies pain on inspiration, Denies pleurisy, Denies respiratory infections, Denies sleep apnea, Denies snoring, Denies wheezing Gastrointestinal: Reports as per HPI, Denies abdominal pain, Denies belching, Denies bloating, Denies BRBPR, Denies change in bowel habits, Denies coffee ground emesis, Denies constipation, Denies diarrhea, Denies dyspepsia, Denies early satiety, Denies excessive gas, Denies heartburn, Denies hematemesis, Denies hematochezia, Denies indigestion, Denies jaundice, Denies lactose intolerance, Denies loss of appetite, Denies melena, Denies nausea, Denies vomiting Genitourinary: Reports as per HPI, Denies abnormal vaginal bleeding, Denies decreased libido, Denies difficulty conceiving, Denies difficulty voiding, Denies dysmenorrhea, Denies dyspareunia, Denies dysuria, Denies flank pain, Denies genital sores, Denies hematuria, Denies hot flashes, Denies incomplete emptying, Denies kidney stones, Denies menorrhagia, Denies mixed incontinence, Denies nocturia, Denies pelvic pain, Denies post void dribbling, Denies , Denies prolapse symptoms, Denies stress incontinence, Denies urge incontinence , Denies urgency, Denies urinary frequency, Denies vaginal discharge, Denies vaginal dryness, Denies vaginal itching, Denies vaginal odor Menstruation: Reports as per HPI, Denies amenorrhea, Denies amenorrhea on BC, Denies currently menstrual, Denies cycle < 21 days, Denies cycle > 35 days, Denies cycle variable, Denies menses 1-7 days, Denies menses 8 or > days, Denies menses variable, Denies period heavy, Denies period light, Denies period normal, Denies period spotting, Denies post hysterectomy, Denies postmenopausal , Denies premenarcheal Musculoskeletal: Reports as per HPI Integumentary: Reports as per HPI, Reports color changes, Reports rash, Reports sores Neurological: Reports as per HPI, Denies aphasia, Denies ataxia, Denies balance difficulties, Denies burning pain, Denies change in mentation, Denies change in smell/taste, Denies change in speech, Denies confusion, Denies convulsions, Denies double vision, Denies gait dysfunction, Denies head injury, Denies headaches, Denies hearing difficulties, Denies lack of coordination, Denies loss of vision, Denies memory loss, Denies migraines, Denies motor disturbance, Denies numbness, Denies paralysis, Denies paresthesias, Denies seizures, Denies sensory deficit, Denies spasticity, Denies syncope, Denies tic, Denies tingling , Denies transient paralysis, Denies tremors, Denies vertigo, Denies weakness, Denies visual changes Psychiatric: Reports as per HPI, Denies anhedonia, Denies anxiety, Denies anxiety attacks, Denies change in appetite, Denies change in libido, Denies change in sleep habits, Denies confusion, Denies depression, Denies difficulty concentrating, Denies disorientation, Denies hallucinations, Denies hopelessness , Denies hypersomnia, Denies insomnia, Denies irritability, Denies memory loss, Denies mood swings, Denies paranoia, Denies sadness/tearfulness, Denies sleep disturbances, Denies suicidal ideation Endocrine: Reports as per HPI Hematologic/Lymphatic: Reports as per HPI Allergic/Immunologic: Reports as per HPI, Denies allergic rhinitis, Denies anaphylaxis, Denies angioedema, Denies gluten intolerance, Denies persistent infections, Denies seasonal allergies, Denies urticaria, Denies wheezing Objective - Vital Signs Vital signs: Vital Signs Temp 98.4 F 06/24/18 08:21 Pulse 71 06/24/18 08:21 Resp 16 06/24/18 08:21 BP 115/65 06/24/18 08:21 Pulse Ox 95 06/24/18 08:21 Intake & Output 06/23/18 06/24/18 06/24/18 18:59 06:59 18:59 Intake Total 240 1040 Balance 240 1040 Weight 49.442 kg Intake: Oral 240 1040 Other: # Voids 2 2 1 - Exam General appearance: cooperative, thin, in no acute distress - Neck Neck: normal ROM - Respiratory Respiratory: bilateral: CTA, negative: diminished, dullness - Cardiovascular Rhythm: regular Heart sounds: normal: S1, S2 Abnormal Heart Sounds: no systolic murmur, no diastolic murmur, no rub, no S3 Gallop, no S4 Gallop, no click, no other - Gastrointestinal General gastrointestinal: normal bowel sounds, soft - Integumentary Integumentary: cellulitis (Circumferential redness involving the volar aspect of the arm), decreased turgor, normal - Neurologic Neurologic: CNII-XII intact, focal deficits - Musculoskeletal Musculoskeletal: gait normal - Psychiatric Psychiatric: A&O x's 3, appropriate affect, intact judgment & insight - Labs CBC & Chem 7: 06/25/18 08:53 06/25/18 08:53 Labs: Abnormal Lab Results - Last 24 Hours (Table) 06/23/18 06/23/18 06/24/18 Range/Units 09:57 12:32 08:52 RBC 3.77 L 3.31 L (3.80-5.40) m/uL Hgb 10.2 L (11.4-16.0) gm/dL Hct 31.9 L (34.0-46.0) % Neutrophils # 8.8 H (1.3-7.7) k/uL Lymphocytes # 0.8 L (1.0-4.8) k/uL Potassium 5.3 H (3.5-5.1) mmol/L Chloride 109 H (98-107) mmol/L Glucose (74-99) mg/dL AST 47 H (14-36) U/L C-Reactive Protein (<10.0) mg/L Total Protein (6.3-8.2) g/dL Albumin (3.5-5.0) g/dL 06/24/18 Range/Units 08:52 RBC (3.80-5.40) m/uL Hgb (11.4-16.0) gm/dL Hct (34.0-46.0) % Neutrophils # (1.3-7.7) k/uL Lymphocytes # (1.0-4.8) k/uL Potassium (3.5-5.1) mmol/L Chloride 108 H (98-107) mmol/L Glucose 147 H (74-99) mg/dL AST (14-36) U/L C-Reactive Protein 74.3 H (<10.0) mg/L Total Protein 5.1 L (6.3-8.2) g/dL Albumin 2.9 L (3.5-5.0) g/dL Assessment and Plan Plan: 1. Cat bite with cellulitis, left hand. Continue Unasyn, consult were made with Dr. Guillory and Dr. Mari, scheduled Toradol for pain. 2. Hypothyroidism currently stable on [place] thyroid 60 mg daily no changes made. GI prophylaxis DVT prophylaxis provided Mild anemia Hyperkalemia, fluids for hydration Elevated liver function tests possibly related to Britt continue to monitor Discharge plan: Home Impression and plan of care have been directed as dictated by the signing physician. Wendy Mckeon nurse practitioner acting as scribe for signing physician.
[2018-06-25] MEDS: TRIAMCINOLONE ACET 0.5% CREAM 15 GM TUBE TOPICAL SCH (11:44)
--- NOTE | 2018-06-25 14:32 | P.PN ---
Subjective Progress Note Date: 06/25/18 This is a 67-year-old pleasant female will be seeing Dr. Vaughan who will be establishing with Dr. Cummings in the clinic, healthy with history of hyperthyroidism, admitted to the emergency room after she was bitten by a cat 3 days ago most likely this Is to, and was started on Unasyn and discharged on Augmentin yesterday. Patient took the Augmentin for the past one day, she complained of increasing pain and swelling, this was a previous orthopedic surgery procedure performed by Dr. Mari in the past. Patient is now complaining of increasing difficulty in using the digits of the left hand secondary to swelling and redness. Patient denies any history off drug- resistant microbes in the past, no history of Raynaud's, no history of diabetes mellitus.. In emergency room, x-rays have been performed with significant subcutaneous edema, involving the PIP DIP, no osteomyelitis noted 06/24: Patient states the edema and redness on the left hand is improving. She does have elevated on pillows. Consult with Dr. Guillory is appreciated. Patient is continued on Unasyn. Irving wrapping added to help with edema. We have changed Toradol to scheduled [id number]. 06/25: Patient has been seen by orthopedics with recommendations for rest and elevate the left hand, K pad or warm compresses as tolerated. No surgical intervention planned. Patient has decreased erythema and edema to the left hand. She has been afebrile. She is currently on IV Unasyn. Dr. Guillory would like to keep her for 1 more day plan for discharge home tomorrow with Augmentin which she has at home. WBC 5.5, hemoglobin 10.4, chloride 112, creatinine 0.51 , Repeat AST 245, ALT 217. She has been instructed to avoid Tylenol, follow low-fat diet. Review of Systems Constitutional: Reports as per HPI, Denies anorexia, Denies chills, Denies chronic headaches, Denies chronic pain, Denies daytime sleepiness, Denies fatigue, Denies fever, Denies lethargy, Denies malaise, Denies night sweats, Denies poor appetite, Denies sweats, Denies weakness, Denies weight gain, Denies weight loss Ears, nose, mouth and throat: Reports as per HPI, Denies ant. neck pain, Denies bleeding gums, Denies dental pain, Denies dysphagia, Denies epistaxis, Denies headache, Denies hoarseness, Denies mouth pain, Denies nasal congestion, Denies nasal discharge, Denies neck fullness/pressure, Denies neck lump, Denies nose pain, Denies odynophagia, Denies post-nasal drip, Denies sinus pain, Denies sinus pressure, Denies swelling in mouth, Denies swelling in throat, Denies sore throat, Denies vertigo, Denies voice changes Cardiovascular: Reports as per HPI Respiratory: Reports as per HPI, Denies congestion, Denies cough, Denies cough with sputum, Denies dyspnea, Denies excessive sputum, Denies hemoptysis, Denies home oxygen, Denies pain, Denies pain on inspiration, Denies pleurisy, Denies respiratory infections, Denies sleep apnea, Denies snoring, Denies wheezing Gastrointestinal: Reports as per HPI, Denies abdominal pain, Denies belching, Denies bloating, Denies BRBPR, Denies change in bowel habits, Denies coffee ground emesis, Denies constipation, Denies diarrhea, Denies dyspepsia, Denies early satiety, Denies excessive gas, Denies heartburn, Denies hematemesis, Denies hematochezia, Denies indigestion, Denies jaundice, Denies lactose intolerance, Denies loss of appetite, Denies melena, Denies nausea, Denies vomiting Genitourinary: Reports as per HPI, Denies abnormal vaginal bleeding, Denies decreased libido, Denies difficulty conceiving, Denies difficulty voiding, Denies dysmenorrhea, Denies dyspareunia, Denies dysuria, Denies flank pain, Denies genital sores, Denies hematuria, Denies hot flashes, Denies incomplete emptying, Denies kidney stones, Denies menorrhagia, Denies mixed incontinence, Denies nocturia, Denies pelvic pain, Denies post void dribbling, Denies , Denies prolapse symptoms, Denies stress incontinence, Denies urge incontinence , Denies urgency, Denies urinary frequency, Denies vaginal discharge, Denies vaginal dryness, Denies vaginal itching, Denies vaginal odor Menstruation: Reports as per HPI, Denies amenorrhea, Denies amenorrhea on BC, Denies currently menstrual, Denies cycle < 21 days, Denies cycle > 35 days, Denies cycle variable, Denies menses 1-7 days, Denies menses 8 or > days, Denies menses variable, Denies period heavy, Denies period light, Denies period normal, Denies period spotting, Denies post hysterectomy, Denies postmenopausal , Denies premenarcheal Musculoskeletal: Reports as per HPI Integumentary: Reports as per HPI, Reports color changes, Reports rash, Reports sores Neurological: Reports as per HPI, Denies aphasia, Denies ataxia, Denies balance difficulties, Denies burning pain, Denies change in mentation, Denies change in smell/taste, Denies change in speech, Denies confusion, Denies convulsions, Denies double vision, Denies gait dysfunction, Denies head injury, Denies headaches, Denies hearing difficulties, Denies lack of coordination, Denies loss of vision, Denies memory loss, Denies migraines, Denies motor disturbance, Denies numbness, Denies paralysis, Denies paresthesias, Denies seizures, Denies sensory deficit, Denies spasticity, Denies syncope, Denies tic, Denies tingling , Denies transient paralysis, Denies tremors, Denies vertigo, Denies weakness, Denies visual changes Psychiatric: Reports as per HPI, Denies anhedonia, Denies anxiety, Denies anxiety attacks, Denies change in appetite, Denies change in libido, Denies change in sleep habits, Denies confusion, Denies depression, Denies difficulty concentrating, Denies disorientation, Denies hallucinations, Denies hopelessness , Denies hypersomnia, Denies insomnia, Denies irritability, Denies memory loss, Denies mood swings, Denies paranoia, Denies sadness/tearfulness, Denies sleep disturbances, Denies suicidal ideation Endocrine: Reports as per HPI Hematologic/Lymphatic: Reports as per HPI Allergic/Immunologic: Reports as per HPI, Denies allergic rhinitis, Denies anaphylaxis, Denies angioedema, Denies gluten intolerance, Denies persistent infections, Denies seasonal allergies, Denies urticaria, Denies wheezing Objective - Vital Signs Vital signs: Vital Signs Temp 98.1 F 06/25/18 12:14 Pulse 75 06/25/18 12:14 Resp 16 06/25/18 12:14 BP 150/67 06/25/18 12:14 Pulse Ox 100 01/17/19 12:14 Intake & Output 06/24/18 06/25/18 06/25/18 18:59 06:59 18:59 Intake Total 120 1900 400 Balance 120 1900 400 Intake: Intake, IV Titration 1100 Amount Ampicillin-Sulbactam 3 gm 100 In Sodium Chloride 0.9% 100 ml @ 200 mls/hr IVPB Q6H BREANNA Rx#:[id number] Sodium Chloride 0.9% 1, 1000 000 ml @ 100 mls/hr IV . Q10H BREANNA Rx#:[id number] Oral 120 800 400 Other: # Voids 1 1 # Bowel Movements 1 - Exam General appearance: cooperative, thin, in no acute distress - Neck Neck: normal ROM - Respiratory Respiratory: bilateral: CTA, negative: diminished, dullness - Cardiovascular Rhythm: regular Heart sounds: normal: S1, S2 Abnormal Heart Sounds: no systolic murmur, no diastolic murmur, no rub, no S3 Gallop, no S4 Gallop, no click, no other - Gastrointestinal General gastrointestinal: normal bowel sounds, soft - Integumentary Integumentary: cellulitis (mild redness involving the volar aspect of the arm), decreased turgor, normal - Neurologic Neurologic: CNII-XII intact, focal deficits - Musculoskeletal Musculoskeletal: gait normal - Psychiatric Psychiatric: A&O x's 3, appropriate affect, intact judgment & insight - Labs CBC & Chem 7: 06/25/18 08:53 06/25/18 08:53 Labs: Abnormal Lab Results - Last 24 Hours (Table) 06/25/18 06/25/18 Range/Units 08:53 08:53 RBC 3.33 L (3.80-5.40) m/uL Hgb 10.4 L (11.4-16.0) gm/dL Hct 32.8 L (34.0-46.0) % Lymphocytes # 0.9 L (1.0-4.8) k/uL Chloride 112 H (98-107) mmol/L Creatinine 0.51 L (0.52-1.04) mg/dL Glucose 109 H (74-99) mg/dL AST 245 H (14-36) U/L ALT 217 H (9-52) U/L Total Protein 5.0 L (6.3-8.2) g/dL Albumin 2.9 L (3.5-5.0) g/dL Microbiology - Last 24 Hours (Table) 06/23/18 09:57 Blood Culture - Preliminary Blood No Growth after 48 hours Assessment and Plan Plan: 1. Cat bite with cellulitis, left hand. Continue Unasyn. Consult with Dr. Guillory and Dr. Mari appreciated, continue scheduled Toradol for pain. 2. Hypothyroidism currently stable on Foley thyroid 60 mg daily no changes made. GI prophylaxis DVT prophylaxis provided Mild anemia Hyperkalemia, fluids for hydration Elevated liver function tests possibly related to Britt continue to monitor Discharge plan: Home Impression and plan of care have been directed as dictated by the signing physician. Wendy Mckeon nurse practitioner acting as scribe for signing physician.
--- NOTE | 2018-06-25 16:36 | P.PN ---
Subjective Progress Note Date: 06/25/18 This is a 67 year old female admitted for cellulitis of the left hand after a cat bite. Patient reports improvement in symptoms. Patient denies any new complaints today. Patient denies any fever/chills, numbness, weakness or tingling. Objective - Vital Signs Vital signs: Vital Signs Temp 98.6 F 06/25/18 08:04 Pulse 74 06/25/18 08:04 Resp 16 06/25/18 08:04 BP 130/72 06/25/18 08:04 Pulse Ox 97 06/25/18 08:04 Intake & Output 06/24/18 06/25/18 06/25/18 18:59 06:59 18:59 Intake Total 120 1900 Balance 120 1900 Intake: Intake, IV Titration 1100 Amount Ampicillin-Sulbactam 3 gm 100 In Sodium Chloride 0.9% 100 ml @ 200 mls/hr IVPB Q6H BREANNA Rx#:[id number] Sodium Chloride 0.9% 1, 1000 000 ml @ 100 mls/hr IV . Q10H BREANNA Rx#:[id number] Oral 120 800 Other: # Voids 1 1 # Bowel Movements 1 - Exam On exam patient is resting comfortably in bed in no acute distress. There is mild swelling over the dorsum of the left hand. Patient has good range of motion of the fingers of the left hand. Sensation intact. No fluctuance. Neurovascular status and circulatory status are intact. - Labs CBC & Chem 7: 06/25/18 08:53 06/25/18 08:53 Labs: Abnormal Lab Results - Last 24 Hours (Table) 06/25/18 06/25/18 Range/Units 08:53 08:53 RBC 3.33 L (3.80-5.40) m/uL Hgb 10.4 L (11.4-16.0) gm/dL Hct 32.8 L (34.0-46.0) % Lymphocytes # 0.9 L (1.0-4.8) k/uL Chloride 112 H (98-107) mmol/L Creatinine 0.51 L (0.52-1.04) mg/dL Glucose 109 H (74-99) mg/dL AST 245 H (14-36) U/L ALT 217 H (9-52) U/L Total Protein 5.0 L (6.3-8.2) g/dL Albumin 2.9 L (3.5-5.0) g/dL Microbiology - Last 24 Hours (Table) 06/23/18 09:57 Blood Culture - Preliminary Blood No Growth after 24 hours Assessment and Plan Assessment: Eye disorder Osteoarthritis Thyroid disorder (1) Cat bite involving extremity Current Visit: Yes Status: Acute Code(s): HRX9307 - SNOMED Code(s): 053539589 (2) Cellulitis Current Visit: Yes Status: Acute Code(s): L03.90 - CELLULITIS, UNSPECIFIED SNOMED Code(s): 722899384 (3) Failure of outpatient treatment Current Visit: Yes Status: Acute Code(s): Z78.9 - OTHER SPECIFIED HEALTH STATUS SNOMED Code(s): 530474581 Plan: #1. Rest and elevate the left hand. #2. K-pad or warm compresses as tolerated. #3. Continue antibiotics and pain control. #4. No surgical intervention planned. Will continue to follow.
[2018-06-26] MEDS: KETOROLAC 30 MG/ML 1 ML VIAL IVP SCH ×3 (00:08→12:02)
--- NOTE | 2018-06-26 00:18 | P.PN ---
Subjective Progress Note Date: 06/25/18 This is a 67-year-old female gives history that she brought one of their barn cats in the house and was calling the vet to have that cat put down as it was 17 years old and not doing well. She was trying to give the cat a piece of cheese and it bit her thumb instead of the cheese. Patient states she initially only had swelling on her thumb but then she had a red line going up to her wrist and came into [facility] emergency center on June 22 for evaluation. Hand x-ray showed no acute fracture. Osteoarthritic changes. She was given 1 dose of IV Unasyn and provided a prescription for Augmentin and ibuprofen and follow-up with her primary care. Patient states she took 2 doses of the Augmentin but the swelling continued into the dorsal part of her hand and was spreading to her wrist. She thought she had a fever last evening and was shaking. She came back into [facility] emergency center for evaluation. She has been afebrile, vital signs have been stable, repeat hand x-ray showed demineralization is redemonstrated. No acute fracture dislocation. Subchondral cystic change in the first metacarpal. Mild to moderate degenerative change throughout the phalanges. [id number] diffuse a cutaneous edema slightly more prominent than prior study. No suspicious cortical destruction or periostial reaction. Patient was started on Unasyn and Kenalog cream and admitted to the surgical/ pediatric unit. Patient does state that the redness and swelling are improved from yesterday and red line streaking is better. She does complain of a headache. Appetite is about the same as normal. She's had no vomiting or diarrhea. No fever or chills. Patient will determine last tetanus immunization. 06/25/2018 reveals the patient had improvement today. Pain is improved. Her appetite is doing a bit better too. That having high-grade fevers or chills he' s had some headache that seems to be improved. Denies other new symptoms. Objective - Vital Signs Vital signs: Vital Signs Temp 98.9 F 06/25/18 20:00 Pulse 79 06/25/18 20:00 Resp 18 06/25/18 20:00 BP 132/74 06/25/18 20:00 Pulse Ox 98 06/25/18 20:00 Intake & Output 06/25/18 06/25/18 06/26/18 06:59 18:59 06:59 Intake Total 1900 1700 Balance 1900 1700 Intake: Intake, IV Titration 1100 Amount Ampicillin-Sulbactam 3 gm 100 In Sodium Chloride 0.9% 100 ml @ 200 mls/hr IVPB Q6H BREANNA Rx#:[id number] Sodium Chloride 0.9% 1, 1000 000 ml @ 100 mls/hr IV . Q10H BREANNA Rx#:[id number] Oral 800 1700 Other: # Voids 1 2 # Bowel Movements 1 - Exam Gen: This is a 67-year-old female. She is sitting up in bed and appears become 12 and in no acute distress. Patient's is at the bedside. HEENT: Head is atraumatic, normocephalic. Pupils equal, round. Sclerae is anicteric. Conjunctiva pink. As of the mouth are moist. No thrush noted. NECK: Supple. No JVD. No lymphadenopathy. No thyromegaly. LUNGS: Clear to auscultation. No wheezes or rhonchi. No intercostal retractions. HEART: Regular rate and rhythm. No murmur. ABDOMEN: Soft. Bowel sounds are present. No masses. No tenderness. EXTREMITIES: No pedal edema. No calf tenderness. Dorsalis pedis +2 bilaterally. To the left hand patient has swelling to the dorsal surface of the left hand with erythema into the radial side of the wrist. No open wounds or drainage. No falls have occurred.The significant redness and swelling to the dorsum of the exam is improved but not resolved. Still able to make a full fist. The epitrochlear lymphadenitis is improved but not resolved. No left axillary lymphadenopathy is noted. NEUROLOGICAL: Patient is awake, alert and oriented x3. - Labs CBC & Chem 7: 06/25/18 08:53 06/25/18 08:53 Labs: Abnormal Lab Results - Last 24 Hours (Table) 06/25/18 06/25/18 Range/Units 08:53 08:53 RBC 3.33 L (3.80-5.40) m/uL Hgb 10.4 L (11.4-16.0) gm/dL Hct 32.8 L (34.0-46.0) % Lymphocytes # 0.9 L (1.0-4.8) k/uL Chloride 112 H (98-107) mmol/L Creatinine 0.51 L (0.52-1.04) mg/dL Glucose 109 H (74-99) mg/dL AST 245 H (14-36) U/L ALT 217 H (9-52) U/L Total Protein 5.0 L (6.3-8.2) g/dL Albumin 2.9 L (3.5-5.0) g/dL Microbiology - Last 24 Hours (Table) 06/23/18 09:57 Blood Culture - Preliminary Blood No Growth after 48 hours Laboratory Results WBC 5.5 k/uL (3.8-10.6) 06/25/18 08:53 RBC 3.33 m/uL (3.80-5.40) L 06/25/18 08:53 Hgb 10.4 gm/dL (11.4-16.0) L 06/25/18 08:53 Hct 32.8 % (34.0-46.0) L 06/25/18 08:53 MCV 98.5 fL (80.0-100.0) 06/25/18 08:53 MCH 31.1 pg (25.0-35.0) 06/25/18 08:53 MCHC 31.6 g/dL (31.0-37.0) 06/25/18 08:53 RDW 12.7 % (11.5-15.5) 06/25/18 08:53 Plt Count 192 k/uL (150-450) 06/25/18 08:53 Neutrophils % 76 % 06/25/18 08:53 Lymphocytes % 16 % 06/25/18 08:53 Monocytes % 5 % 06/25/18 08:53 Eosinophils % 1 % 06/25/18 08:53 Basophils % 0 % 06/25/18 08:53 Neutrophils # 4.2 k/uL (1.3-7.7) 06/25/18 08:53 Lymphocytes # 0.9 k/uL (1.0-4.8) L 06/25/18 08:53 Monocytes # 0.3 k/uL (0-1.0) 06/25/18 08:53 Eosinophils # 0.1 k/uL (0-0.7) 06/25/18 08:53 Basophils # 0.0 k/uL (0-0.2) 06/25/18 08:53 Hypochromasia Slight 06/25/18 08:53 ESR 20 mm/hr (0-20) 06/24/18 08:52 Sodium 141 mmol/L (137-145) 06/25/18 08:53 Potassium 4.1 mmol/L (3.5-5.1) 06/25/18 08:53 Chloride 112 mmol/L (98-107) H 06/25/18 08:53 Carbon Dioxide 27 mmol/L (22-30) 06/25/18 08:53 Anion Gap 2 mmol/L 06/25/18 08:53 BUN 13 mg/dL (7-17) 06/25/18 08:53 Creatinine 0.51 mg/dL (0.52-1.04) L 06/25/18 08:53 Est GFR (CKD-EPI)AfAm >90 (>60 ml/min/1.73 sqM) 06/25/18 08:53 Est GFR (CKD-EPI)NonAf >90 (>60 ml/min/1.73 sqM) 06/25/18 08:53 Glucose 109 mg/dL (74-99) H 06/25/18 08:53 Plasma Lactic Acid Xander 1.1 mmol/L (0.7-2.0) 06/23/18 09:57 Calcium 8.5 mg/dL (8.4-10.2) 06/25/18 08:53 Total Bilirubin 0.4 mg/dL (0.2-1.3) 06/25/18 08:53 AST 245 U/L (14-36) H 06/25/18 08:53 ALT 217 U/L (9-52) H 06/25/18 08:53 Alkaline Phosphatase 75 U/L (38-126) 06/25/18 08:53 C-Reactive Protein 74.3 mg/L (<10.0) H 06/24/18 08:52 Total Protein 5.0 g/dL (6.3-8.2) L 06/25/18 08:53 Albumin 2.9 g/dL (3.5-5.0) L 06/25/18 08:53 Microbiology 06/23/18 09:57 Blood Blood Culture - Preliminary No Growth after 48 hours Assessment and Plan (1) Cat bite involving extremity Narrative/Plan: This pleasant woman severed a cat bite from her cat while she is trying to feed it's cheese. The cat has been put down. The patient continues to have a significant amount of swelling and pain although it is improved since admission. She isn't ascending lymphangitis with evidence of a swollen left epitrochlear lymph node IS with a lymphangitis also occurring. For now continue local wound care, antibiotic therapy with Unasyn, pain control with Toradol. Maneuvers to elevate the arm are done and it is wrapped with an Irving wrap hopefully to improve her edema and discomfort. If the strep is not tolerable it may be removed. Of note there is been there is marked improvement of the cellulitis and lymphangitis of the left hand in the last days time. However not resolve well enough to discontinue antibiotic therapy intravenous and transmit to oral. She'll has pain trying to make of this. We'll expect this point much better after next 3 or 4 doses of Unasyn. After that plan and discharged home oral antibiotic therapy wraps and elevation until she is completely normalized. Current Visit: Yes Status: Acute Code(s): [id number] - SNOMED Code(s): 205804057
[2018-06-26] MEDS: AMPICILLIN-SULBACTAM 3 GM in SODIUM CHLORIDE 0.9% 100 ML IVPB SCH ×3 (04:19→15:58)
[2018-06-26] MEDS ORDERED: PANTOPRAZOLE 40 MG TABLET PO SCH (07:30)
[2018-06-26 08:03] VITALS: BP 148/62; PULSE 71; TEMP 98.7
--- NOTE | 2018-06-26 09:43 | P.PN ---
Subjective Progress Note Date: 06/26/18 This is a 67 year old female admitted for cellulitis of the left hand after a cat bite. Patient reports continued improvement in symptoms. Patient denies any new complaints today. Patient denies any fever/chills, numbness, weakness or tingling. Objective - Vital Signs Vital signs: Vital Signs Temp 98.7 F 06/26/18 08:02 Pulse 71 06/26/18 08:02 Resp 18 06/26/18 08:02 BP 148/62 06/26/18 08:02 Pulse Ox 98 06/26/18 08:02 Intake & Output 06/25/18 06/26/18 06/26/18 18:59 06:59 18:59 Intake Total 1700 600 Balance 1700 600 Intake: Oral 1700 600 Other: # Voids 2 2 - Exam On exam patient is resting comfortably in bed in no acute distress. There is mild swelling over the dorsum of the left hand. Patient has good range of motion of the fingers of the left hand. Sensation intact. No fluctuance. Neurovascular status and circulatory status are intact. - Labs CBC & Chem 7: 06/25/18 08:53 06/25/18 08:53 Labs: Microbiology - Last 24 Hours (Table) 06/23/18 09:57 Blood Culture - Preliminary Blood No Growth after 48 hours Assessment and Plan Assessment: Eye disorder Osteoarthritis Thyroid disorder (1) Cat bite involving extremity Current Visit: Yes Status: Acute Code(s): MEQ7427 - SNOMED Code(s): 194324675 (2) Cellulitis Current Visit: Yes Status: Acute Code(s): L03.90 - CELLULITIS, UNSPECIFIED SNOMED Code(s): 935492969 (3) Failure of outpatient treatment Current Visit: Yes Status: Acute Code(s): Z78.9 - OTHER SPECIFIED HEALTH STATUS SNOMED Code(s): 575497639 Plan: #1. Rest and elevate the left hand. #2. K-pad or warm compresses as tolerated. #3. Continue antibiotics and pain control. #4. No surgical intervention planned. Patient may follow up as needed on an outpatient basis.
[2018-06-26] MEDS ORDERED: MORPHINE ORAL SOLN 10 MG/5 ML CUP PO PRN (11:34)
--- NOTE | 2018-06-26 12:19 | P.DS ---
Providers Date of admission: 06/23/18 13:06 Expected date of discharge: 06/26/18 Attending physician: Brittany Gillette Consults: 06/23/18 13:06 Consult Physician Stat Consulting Provider: Escobar Guillory Consult Reason/Comments: Cellulitis, Catbite Do you want consulting provider notified?: Yes Consult Physician Stat Consulting Provider: Bishnu Mari Consult Reason/Comments: Left hand cellulitis, cat bite Do you want consulting provider notified?: Yes Primary care physician: Escobar Clement [facility] Course: This is a 67-year-old pleasant female will be seeing Dr. Vaughan who will be establishing with Dr. Cummings in the clinic, healthy with history of hyperthyroidism, admitted to the emergency room after she was bitten by a cat 3 days ago most likely this Is to, and was started on Unasyn and discharged on Augmentin yesterday. Patient took the Augmentin for the past one day, she complained of increasing pain and swelling, this was a previous orthopedic surgery procedure performed by Dr. Mari in the past. Patient is now complaining of increasing difficulty in using the digits of the left hand secondary to swelling and redness. Patient denies any history off drug- resistant microbes in the past, no history of Raynaud's, no history of diabetes mellitus.. In emergency room, x-rays have been performed with significant subcutaneous edema, involving the PIP DIP, no osteomyelitis noted 06/24: Patient states the edema and redness on the left hand is improving. She does have elevated on pillows. Consult with Dr. Guillory is appreciated. Patient is continued on Unasyn. Irving wrapping added to help with edema. We have changed Toradol to scheduled [id number]. 06/25: Patient has been seen by orthopedics with recommendations for rest and elevate the left hand, K pad or warm compresses as tolerated. No surgical intervention planned. Patient has decreased erythema and edema to the left hand. She has been afebrile. She is currently on IV Unasyn. Dr. Guillory would like to keep her for 1 more day plan for discharge home tomorrow with Augmentin which she has at home. WBC 5.5, hemoglobin 10.4, chloride 112, creatinine 0.51 , Repeat AST 245, ALT 217. She has been instructed to avoid Tylenol, follow low-fat diet. 06/26: Patient has been afebrile, vital signs stable.Irving wrap in place. Patient has mild edema remaining. She continues to have some pain. Toradol and lidocaine topical ordered for home. Patient to complete course of augmentin which was started prior to admission. Patient will be discharged home today in stable condition. Discharge diagnoses: 1. Cat bite with cellulitis and ascending lymphangitis, left hand. 2. Hypothyroidism 3. Mild anemia 4. Hyperkalemia 5. Elevated liver function tests possibly related to Britt Discharge plan: Home Impression and plan of care have been directed as dictated by the signing physician. Wendy Mckeon nurse practitioner acting as scribe for signing physician. Patient Condition at Discharge: Good Plan - Discharge Summary Discharge Rx Participant: Yes New Discharge Prescriptions: New Ketorolac [Toradol] 10 mg PO Q6HR #20 tab Lidocaine 5% Oint [Xylocaine 5% Oint] 1 applic TOPICAL QID #1 tube No Action Thyroid,Pork [[place] Thyroid] 60 mg PO DAILY Ibuprofen [Motrin] 600 mg PO Q8HR PRN #30 tab PRN Reason: Pain Amoxic-Pot Clav 875-125Mg [Augmentin 875-125] 1 tab PO Q12HR Discharge Medication List Thyroid,Pork [V[place]aman Thyroid] 60 mg PO DAILY 09/28/15 [History] Ibuprofen [Motrin] 600 mg PO Q8HR PRN #30 tab 06/22/18 [Rx] Amoxic-Pot Clav 875-125Mg [Augmentin 875-125] 1 tab PO Q12HR 06/23/18 [History] Ketorolac [Toradol] 10 mg PO Q6HR #20 tab 06/25/18 [Rx] Lidocaine 5% Oint [Xylocaine 5% Oint] 1 applic TOPICAL QID #1 tube 06/26/18 [Rx] Follow up Appointment(s)/Referral(s): Escobar Guillory MD [STAFF PHYSICIAN] - 2 Weeks Escobar Vaughan MD [Primary Care Provider] - 1 Week [facility], [NON-STAFF] - 1-2 Days Bishnu Mari DO [Doctor of Osteopathic Medicine] - As Needed Activity/Diet/Wound Care/Special Instructions: Complete augmentin that was previously obtained. Keep left arm elevated and use irving wrap until swelling resolved. Low fat diet. Avoid tylenol. Discharge Disposition: HOME WITH HOME HEALTH SERVICES
[2018-06-26 16:10] VITALS: RESP 20
--- NOTE | 2018-06-26 16:40 | P.PN ---
Subjective Progress Note Date: 06/26/18 This is a 67-year-old female gives history that she brought one of their barn cats in the house and was calling the vet to have that cat put down as it was 17 years old and not doing well. She was trying to give the cat a piece of cheese and it bit her thumb instead of the cheese. Patient states she initially only had swelling on her thumb but then she had a red line going up to her wrist and came into [facility] emergency center on June 22 for evaluation. Hand x-ray showed no acute fracture. Osteoarthritic changes. She was given 1 dose of IV Unasyn and provided a prescription for Augmentin and ibuprofen and follow-up with her primary care. Patient states she took 2 doses of the Augmentin but the swelling continued into the dorsal part of her hand and was spreading to her wrist. She thought she had a fever last evening and was shaking. She came back into [facility] emergency center for evaluation. She has been afebrile, vital signs have been stable, repeat hand x-ray showed demineralization is redemonstrated. No acute fracture dislocation. Subchondral cystic change in the first metacarpal. Mild to moderate degenerative change throughout the phalanges. [id number] diffuse a cutaneous edema slightly more prominent than prior study. No suspicious cortical destruction or periostial reaction. Patient was started on Unasyn and Kenalog cream and admitted to the surgical/ pediatric unit. Patient does state that the redness and swelling are improved from yesterday and red line streaking is better. She does complain of a headache. Appetite is about the same as normal. She's had no vomiting or diarrhea. No fever or chills. Patient will determine last tetanus immunization. 06/25/2018 reveals the patient had improvement today. Pain is improved. Her appetite is doing a bit better too. That having high-grade fevers or chills he' s had some headache that seems to be improved. Denies other new symptoms. 06/26/2018 patient has no further improved. The epicardial tenderness is resolved she is able to almost make a fist still has some swelling to the hand but is much improved. Overall feels better no fevers or chills. Objective - Vital Signs Vital signs: Vital Signs Temp 98.7 F 06/26/18 08:02 Pulse 71 06/26/18 08:02 Resp 20 06/26/18 16:10 BP 148/62 06/26/18 08:02 Pulse Ox 98 06/26/18 08:02 Intake & Output 06/25/18 06/26/18 06/26/18 18:59 06:59 18:59 Intake Total 1700 600 Balance 1700 600 Intake: Oral 1700 600 Other: # Voids 2 2 3 - Exam Gen: This is a 67-year-old female. She is sitting up in bed and appears become 12 and in no acute distress. Patient's is at the bedside. HEENT: Head is atraumatic, normocephalic. Pupils equal, round. Sclerae is anicteric. Conjunctiva pink. As of the mouth are moist. No thrush noted. NECK: Supple. No JVD. No lymphadenopathy. No thyromegaly. LUNGS: Clear to auscultation. No wheezes or rhonchi. No intercostal retractions. HEART: Regular rate and rhythm. No murmur. ABDOMEN: Soft. Bowel sounds are present. No masses. No tenderness. EXTREMITIES: No pedal edema. No calf tenderness. Dorsalis pedis +2 bilaterally. To the left hand patient has swelling to the dorsal surface of the left hand with erythema into the radial side of the wrist. No open wounds or drainage. No falls have occurred.The significant redness and swelling to the dorsum of the exam is improved but not resolved. Still able to make a full fist. The epitrochlear lymphadenitis is resolved. No left axillary lymphadenopathy is noted. NEUROLOGICAL: Patient is awake, alert and oriented x3. - Labs CBC & Chem 7: 06/25/18 08:53 06/25/18 08:53 Labs: Microbiology - Last 24 Hours (Table) 06/23/18 09:57 Blood Culture - Preliminary Blood No Growth after 72 hours Assessment and Plan (1) Cat bite involving extremity Narrative/Plan: This pleasant woman severed a cat bite from her cat while she is trying to feed it's cheese. The cat has been put down. The patient continues to have a significant amount of swelling and pain although it is improved since admission. She isn't ascending lymphangitis with evidence of a swollen left epitrochlear lymph node IS with a lymphangitis also occurring. For now continue local wound care, antibiotic therapy with Unasyn, pain control with Toradol. Maneuvers to elevate the arm are done and it is wrapped with an Irving wrap hopefully to improve her edema and discomfort. If the strep is not tolerable it may be removed. Of note there is been there is marked improvement of the cellulitis and lymphangitis of the left hand in the last days time. However not resolve well enough to discontinue antibiotic therapy intravenous and transmit to oral. She'll has pain trying to make of this. We'll expect this point much better after next 3 or 4 doses of Unasyn. After that plan and discharged home oral antibiotic therapy wraps and elevation until she is completely normalized. 06/26/2018 patient is now considerably improved. For discharge home. Receiving her last dose of intravenous antibiotic at this time we'll then transition to oral Augmentin to complete a course of therapy. If she has any difficult with healing would be happy to see her in the office otherwise follow with her primary care physician. She knows importance of elevation keep wrap on the area and ice packs as tolerated until she is normalized in the next 4-7 days. Current Visit: Yes Status: Acute Code(s): [id number] - SNOMED Code(s): 462818686
== END 2018-06-26 18:10 | disposition home health service (06) | DRG 605 ==
LOC: EC 08:56 → 6PED 13:06
PROVIDERS: ADMIT Family Medicine; ATTEND Family Medicine
DX: S61.452A Open bite of left hand, initial encounter (principal); L03.114 Cellulitis of left upper limb; W55.01XA Bitten by cat, initial encounter; D64.9 Anemia, unspecified; E03.9 Hypothyroidism, unspecified; E87.5 Hyperkalemia; F41.9 Anxiety disorder, unspecified; H57.9 Unspecified disorder of eye and adnexa; M19.90 Unspecified osteoarthritis, unspecified site; K75.81 Nonalcoholic steatohepatitis (NASH)
CPT/HCPCS: 36415; 80053; 83605; 85025; 85652; 86140; 87040; 96365; 96375; 99283; 99285

== ENCOUNTER → 2018-07-16 | Outpatient (CLI) | payer MEDICARE ==
--- NOTE | 2018-07-16 14:05 | NM ---
EXAMINATION TYPE: NM bone 3 phase DATE OF EXAM: 07/16/2018 COMPARISON: NONE HISTORY: Pain Triple phase bone scintigraphy was performed following the injection of 22.5 mCi Tc 99m MDP. Immedia te images and 5 hours post injection images acquired. FINDINGS: There is increased perfusion to the left wrist. There is increased soft tissue uptake overlying the left wrist. Abnormal uptake is seen on delayed imaging within the left wrist suggestive of osteomyelitis. Incidental note is made of abnormal uptake involving the right wrist which may been the basis of prev ious trauma or arthritic change and could be correlated with x-ray. IMPRESSION: 1. Increased perfusion, soft tissue uptake and delayed bony uptake involving the left wrist. Osteomye litis would be in the differential diagnosis. Correlate clinically to exclude a history of trauma or fracture. 2. Nonspecific uptake involving the right wrist. There is no increased flow or soft tissue uptake inv olving the right wrist and therefore it is felt to BE most likely chronic.
== END | disposition home or self-care (01) ==
LOC: RADNMMAIN 07:25
PROVIDERS: ATTEND Internal Medicine Infectious Disease
DX: R93.7 Abnormal findings on diagnostic imaging of other parts of musculoskeletal system (principal)
CPT/HCPCS: 78315; A9503

== ENCOUNTER → 2018-07-22 | Day surgery (SDC) | payer MEDICARE ==
[2018-07-21 14:00] VITALS: BMI 20.5
[~2018-07-22] MED LIST: LIDOCAINE 2% INJ 20 MG/ML SQ ONE
[2018-07-22 08:32] VITALS: RESP 18; TEMP 97.8
[2018-07-22 10:08] VITALS: BP 148/72; PULSE 74
--- NOTE | 2018-07-22 11:41 | IR ---
EXAMINATION TYPE: IR cvc insert >=5 years DATE OF EXAM: 07/22/2018 COMPARISON: NONE CLINICAL HISTORY: Infection Needs long-term intravenous access for antibiotics. PROCEDURE: After informed consent, the skin overlying the left basilic vein was localized with ultrasound and no kathia to be compressible and patent. An ultrasound image was obtained and submitted on the patient's c woody. The overlying skin was prepped and draped and Lidocaine was used for local anesthesia. A skin funmi was made with a scalpel. Access was gained to the vein under ultrasound guidance with a 21 gau ge needle and a 0.018 inch wire was advanced. Access site was dilated with Peel-Away sheath and cath eter tailored to the appropriate length and advanced such that the distal tip is at the cavoatrial ju nction. Spot image was obtained verifying placement. Catheter was fixed to the skin and a sterile d ressing was placed following hemostasis. Catheter was aspirated and flushed with saline. Patient wa s discharged in stable condition without complication. Maximal barrier technique is utilized. Ultras ound image is documented on the chart. Ultrasound used with sterile technique. Fluoro time and fluoroscopic images submitted to document procedure: 1.7 minutes fluoroscopy time, 75 intraoperative images document the procedure IMPRESSION: STATUS POST ULTRASOUND AND FLUOROSCOPIC GUIDED PICC LINE PLACEMENT, READY FOR USE. THIS PROCEDURE WAS PERFORMED BY THE UNDERSIGNED.
== END ==
LOC: CATHCVL 07:43
PROVIDERS: ATTEND Radiology Diagnostic Radiology
DX: L03.114 Cellulitis of left upper limb (principal); M19.90 Unspecified osteoarthritis, unspecified site; E03.9 Hypothyroidism, unspecified; Z79.890 Hormone replacement therapy; Z79.899 Other long term (current) drug therapy
CPT/HCPCS: 36573; C1751; C1769; J2001

== ENCOUNTER 2018-09-08 11:12 | Emergency (ER) | payer MEDICARE ==
[2018-09-08 12:29] VITALS: RESP 18
--- NOTE | 2018-09-08 13:56 | US ---
EXAMINATION TYPE: US venous doppler duplex UE LT DATE OF EXAM: 09/08/2018 COMPARISON: NONE CLINICAL HISTORY: Pain. PICC line removed from left arm 09/01/18. Pain and edema left arm SIDE PERFORMED: left Grayscale, color Doppler, spectral Doppler imaging performed of the deep veins of the left upper extr emity. Visualized portions of the left internal jugular vein, subclavian vein, axillary vein, brachial veins showed normal compressibility and color flow, no abnormal luminal echoes. Left basilic vein show lelia e low-level internal echoes and lack of complete compressibility and color-flow. Cephalic vein is nor mal. Radial veins and ulnar veins are normal. Left Arm: No evidence of DVT. Non-occlusive thrombus within left Basilic vein IMPRESSION: Superficial venous thrombosis status post PICC line removal.
--- NOTE | 2018-09-08 14:10 | XR ---
Left hand HISTORY: Pain, osteomyelitis 4 views of the left hand correlated to prior exam left hand dated 06/23/2018 There is no interval change. No fracture or dislocation. IMPRESSION: Stable left hand. There are findings of osteoarthritis. There is low bone mineralization.
--- NOTE | 2018-09-08 14:20 | ED ---
Extremity Problem HPI - General Chief complaint: Extremity Problem,Nontraumatic Stated complaint: Arm pain/poss blood clot Time Seen by Provider: 09/08/18 12:33 Source: patient, RN notes reviewed Mode of arrival: ambulatory Limitations: no limitations - History of Present Illness Initial comments: 68-year-old female presented for left arm swelling. Patient states that she had a PICC line removed 2 weeks ago. Patient states she noticed increased swelling today and she states she was at her bicep which was 2 cm larger than before. Patient states that she had some rings on her hand that she had removed. Patient states she had a PICC line secondary to osteomyelitis left hand. Patient reports no fevers or chills. Patient had post-antibiotic follow-up with Dr. Guillory and which she states that the osteomyelitis has cleared - Related Data Home Medications Medication Instructions Recorded Confirmed Thyroid,Pork [[place] Thyroid] 60 mg PO DAILY 09/28/15 09/08/18 Cyanocobalamin (Vitamin B-12) 2,500 mcg PO Q48H 07/21/18 09/08/18 [Vitamin B-12] Allergies Allergy/AdvReac Type Severity Reaction Status Date / Time aspirin AdvReac Abdominal Verified 09/08/18 13:45 Pain Review of Systems ROS Statement: Those systems with pertinent positive or pertinent negative responses have been documented in the HPI. ROS Other: All systems not noted in ROS Statement are negative. Past Medical History Past Medical History: Eye Disorder, Osteoarthritis (OA), Thyroid Disorder Additional Past Medical History / Comment(s): Pt states she recently had bilateral eye retinal problems (R retina started to tear but readhered itself and L retina started to tear and developed a hole in it but she was told it was healing), arthritis in multiple joints, spur in R ankle, sciatica R side with R foot numbness and R leg spasms. osteomyelitis, cellulitis from cat bite on left thumb. History of Any Multi-Drug Resistant Organisms: None Reported Past Surgical History: Breast Surgery, Joint Replacement, Orthopedic Surgery Additional Past Surgical History / Comment(s): Bilateral breast reduction, abdominoplasty, L carpal tunnel release, L knee arthroscopy, Lt knee "partial replacement." Past Anesthesia/Blood Transfusion Reactions: Family History of Problems w/ Anesthesia, Motion Sickness, Postoperative Nausea & Vomiting (PONV) Additional Past Anesthesia/Blood Transfusion Reaction / Comment(s): mother had problems in s got "hepatitis from the anethesia" Past Psychological History: No Psychological Hx Reported Smoking Status: Never smoker - Past Family History Father History Unknown: Yes Mother Additional Family Medical History / Comment(s): Mother had hepatitis d/t a complication with anesthesia, she also had ulcers. Brother(s) Family Medical History: Cancer General Exam Limitations: no limitations General appearance: alert, in no apparent distress Head exam: Present: atraumatic, normocephalic, normal inspection Neck exam: Present: normal inspection. Absent: tenderness, meningismus, lymphadenopathy Respiratory exam: Present: normal lung sounds bilaterally. Absent: respiratory distress, wheezes, rales, rhonchi, stridor Cardiovascular Exam: Present: regular rate, normal rhythm, normal heart sounds. Absent: systolic murmur, diastolic murmur, rubs, gallop, clicks Extremities exam: Present: other (Left arm there is mild swelling, tenderness the left bicep region neurovascular intact) Course Vital Signs 09/08/18 11:20 Temperature 98.4 F Pulse Rate 95 Respiratory 18 Rate Blood Pressure 174/85 O2 Sat by Pulse 98 Oximetry Medical Decision Making - Medical Decision Making 68-year-old female presented for left arm swelling ultrasound shows evidence of superficial thrombophlebitis. Patient symptoms are consistent. Patient we treated with anti-inflammatories, warm compresses. Disposition Clinical Impression: Superficial thrombophlebitis Disposition: HOME SELF-CARE Condition: Stable Instructions (If sedation given, give patient instructions): Superficial Thrombophlebitis (ED) Additional Instructions: Please return to the Emergency Department if symptoms worsen or any other concerns. Is patient prescribed a controlled substance at d/c from ED?: No Referrals: Pola Kwok MD [Primary Care Provider] - 1-2 days Time of Disposition: 14:20
[2018-09-08 14:56] VITALS: BP 133/77; PULSE 75; TEMP 97.2
== END 2018-09-08 14:55 | disposition home or self-care (01) ==
LOC: EC 11:12
DX: I80.8 Phlebitis and thrombophlebitis of other sites (principal); M19.90 Unspecified osteoarthritis, unspecified site; E07.9 Disorder of thyroid, unspecified; Z79.899 Other long term (current) drug therapy; Z79.890 Hormone replacement therapy; Z88.6 Allergy status to analgesic agent; Z96.652 Presence of left artificial knee joint
CPT/HCPCS: 99284

== ENCOUNTER → 2019-03-26 | Outpatient (CLI) | payer MEDICARE | END | disposition home or self-care (01) | LOC: LABWHC1 07:38 | PROVIDERS: ATTEND Internal Medicine Endocrinology, Diabetes & Metabolism | DX: E03.8 Other specified hypothyroidism (principal) | CPT/HCPCS: 36415; 84443 ==

== ENCOUNTER → 2019-11-17 | Outpatient (CLI) | payer MEDICARE ==
[2019-11-17 16:23] LABS: African American GFR (CKD) 86.6 (60.0-200.0); Albumin 4.5 g/dL (3.80-4.90); Albumin/Globulin Ratio 2.37 (1.60-3.17); BUN/Creat Ratio 23.75 Ratio (12.00-20.00); Calcium 9.6 mg/dL (8.7-10.3); Globulin 1.9 g/dL (1.6-3.3); Non-African American GFR(CKD) 74.7 (60.0-200.0); Potassium 4.6 mmol/L (3.5-5.5); Total Bilirubin 0.7 mg/dL (0.3-1.2); Total Protein 6.4 g/dL (6.2-8.2)
== END | disposition home or self-care (01) ==
LOC: LABWHC1 08:33
PROVIDERS: ATTEND Internal Medicine Endocrinology, Diabetes & Metabolism
DX: E03.8 Other specified hypothyroidism (principal)
CPT/HCPCS: 36415; 80053; 84443

== ENCOUNTER → 2020-01-17 | Outpatient (CLI) | payer MEDICARE | END | disposition home or self-care (01) | LOC: LABWHC1 10:04 | PROVIDERS: ATTEND Internal Medicine Endocrinology, Diabetes & Metabolism | DX: E03.8 Other specified hypothyroidism (principal) | CPT/HCPCS: 36415; 84443 ==

== ENCOUNTER → 2020-05-18 | Outpatient (CLI) | payer MEDICARE | END | disposition home or self-care (01) | LOC: LABWHC1 09:03 | PROVIDERS: ATTEND Nurse Practitioner Family | DX: U07.1 COVID-19 (principal) | CPT/HCPCS: U0003; C9803 ==

== ENCOUNTER → 2020-05-22 | Outpatient (CLI) | payer MEDICARE | END | disposition home or self-care (01) | LOC: LABWHC1 11:41 | PROVIDERS: ATTEND Nurse Practitioner Family | DX: Z20.828 Contact with and (suspected) exposure to other viral communicable diseases (principal) | CPT/HCPCS: U0003; C9803 ==

== ENCOUNTER 2020-06-30 20:55 | Observation (INO) | payer MEDICARE ==
--- NOTE | 2020-06-30 21:17 | ED ---
Weakness HPI - General Chief complaint: Weakness Stated complaint: Abn EKG Time Seen by Provider: 06/30/20 21:00 Source: patient, family Mode of arrival: ambulatory Limitations: no limitations - History of Present Illness Initial comments: 69-year-old female who presents to the emergency department with reported weakness. Patient states that she was diagnosed with covid a month ago. States that she has been cleared of the symptoms however today was not feeling well. She saw her primary care physician who completed an EKG. It was reported the patient had a new left bundle branch block. Primary care only had an EKG that was 4 years old and nothing more recent. He recommended that the patient have an echo of her heart performed next week the patient was set up for laboratory studies. She states that when she went home she ended up having an episode of syncope. Patient sat down in a chair and found herself slumped over in the chair. Reports that she was only out for a few seconds. She did not injure herself. Denies having any chest pain or shortness of breath prior to the event. States that she had a small headache that lasted only a few seconds which has now fully resolved. No history of previous cardiac disease. Denies cough. No abdominal pain. Denied having any unilateral numbness or weakness. She called her primary care physician who recommended that she come into the emergency department sooner to get evaluated. No other alleviating, precipitating or modifying factors - Related Data Home Medications Medication Instructions Recorded Confirmed Aspirin EC [Ecotrin Low Dose] 362 mg PO DAILY 06/30/20 06/30/20 Thyroid,Pork [[place] Thyroid] 90 mg PO DAILY 06/30/20 06/30/20 Allergies Allergy/AdvReac Type Severity Reaction Status Date / Time aspirin AdvReac STOMACH Verified 06/30/20 22:44 PAIN, LOW DOSE EC OK Review of Systems ROS Statement: Those systems with pertinent positive or pertinent negative responses have been documented in the HPI. ROS Other: All systems not noted in ROS Statement are negative. Past Medical History Past Medical History: Eye Disorder, Osteoarthritis (OA), Thyroid Disorder Additional Past Medical History / Comment(s): Pt states she recently had bilateral eye retinal problems (R retina started to tear but readhered itself and L retina started to tear and developed a hole in it but she was told it was healing), arthritis in multiple joints, spur in R ankle, sciatica R side with R foot numbness and R leg spasms. osteomyelitis, cellulitis from cat bite on left thumb. History of Any Multi-Drug Resistant Organisms: None Reported Past Surgical History: Breast Surgery, Joint Replacement, Orthopedic Surgery Additional Past Surgical History / Comment(s): Bilateral breast reduction, abd ominoplasty, L carpal tunnel release, L knee arthroscopy, Lt knee "partial replacement." Past Anesthesia/Blood Transfusion Reactions: Family History of Problems w/ Anesthesia, Motion Sickness, Postoperative Nausea & Vomiting (PONV) Additional Past Anesthesia/Blood Transfusion Reaction / Comment(s): mother had problems in s got "hepatitis from the anethesia" Past Psychological History: No Psychological Hx Reported Smoking Status: Former smoker, Never smoker Past Alcohol Use History: Rare Past Drug Use History: None Reported - Past Family History Father History Unknown: Yes Mother Additional Family Medical History / Comment(s): Mother had hepatitis d/t a complication with anesthesia, she also had ulcers. Brother(s) Family Medical History: Cancer General Exam Limitations: no limitations General appearance: alert, in no apparent distress Head exam: Present: atraumatic, normocephalic, normal inspection Eye exam: Present: normal appearance, PERRL, EOMI. Absent: scleral icterus, conjunctival injection, periorbital swelling ENT exam: Present: normal exam, mucous membranes moist Neck exam: Present: normal inspection. Absent: tenderness, meningismus, lymphadenopathy Respiratory exam: Present: normal lung sounds bilaterally. Absent: respiratory distress, wheezes, rales, rhonchi, stridor Cardiovascular Exam: Present: regular rate, normal rhythm, normal heart sounds. Absent: systolic murmur, diastolic murmur, rubs, gallop, clicks GI/Abdominal exam: Present: soft, normal bowel sounds. Absent: distended, tenderness, guarding, rebound, rigid Extremities exam: Present: normal inspection, full ROM, normal capillary refill. Absent: tenderness, pedal edema, joint swelling, calf tenderness Back exam: Present: normal inspection Neurological exam: Present: alert, oriented X3, CN II-XII intact Psychiatric exam: Present: normal affect, normal mood Skin exam: Present: warm, dry, intact, normal color. Absent: rash Course Vital Signs 06/30/20 21:00 Temperature 98.4 F Pulse Rate 84 Respiratory 16 Rate Blood Pressure 158/74 O2 Sat by Pulse 98 Oximetry Medical Decision Making - Medical Decision Making Upon arrival patient is placed into room 5. A thorough history and physical exam was performed. Repeat EKG is performed which does demonstrate a left bundle branch block. IV is established and laboratory studies were conducted. Patient went over for chest x-ray. Laboratory studies are reviewed. Chest x- ray demonstrates no acute intrathoracic process. I did discuss the diagnosis, differential and treatment options. Did recommend admission for syncope with new onset left bundle branch block. Patient agreed to this. Spoke with Sherita from [facility] who agreed to admit the patient rated I did order an echo and consult to cardiology. I we'll trend the patient's troponins. She remained in stable condition and was transported to the floor - Lab Data Result diagrams: 07/01/20 05:02 07/01/20 05:02 Lab Results 06/30/20 06/30/20 06/30/20 Range/Units 21:25 21:25 21:25 WBC 5.5 (3.8-10.6) k/uL RBC 4.20 (3.80-5.40) m/uL Hgb 12.8 (11.4-16.0) gm/dL Hct 37.3 (34.0-46.0) % MCV 88.7 (80.0-100.0) fL MCH 30.5 (25.0-35.0) pg MCHC 34.4 (31.0-37.0) g/dL RDW 12.6 (11.5-15.5) % Plt Count 267 (150-450) k/uL MPV 8.0 Neutrophils % 55 % Lymphocytes % 31 % Monocytes % 7 % Eosinophils % 3 % Basophils % 1 % Neutrophils # 3.0 (1.3-7.7) k/uL Lymphocytes # 1.7 (1.0-4.8) k/uL Monocytes # 0.4 (0-1.0) k/uL Eosinophils # 0.2 (0-0.7) k/uL Basophils # 0.1 (0-0.2) k/uL PT 10.6 (9.0-12.0) sec INR 1.0 (<1.2) APTT 22.6 (22.0-30.0) sec Sodium 134 L (137-145) mmol/L Potassium 4.0 (3.5-5.1) mmol/L Chloride 100 (98-107) mmol/L Carbon Dioxide 28 (22-30) mmol/L Anion Gap 6 mmol/L BUN 25 H (7-17) mg/dL Creatinine 0.67 (0.52-1.04) mg/dL Est GFR (CKD-EPI)AfAm >90 (>60 ml/min/1.73 sqM) Est GFR (CKD-EPI)NonAf 90 (>60 ml/min/1.73 sqM) Glucose 107 H (74-99) mg/dL Plasma Lactic Acid Xander (0.7-2.0) mmol/L Calcium 9.8 (8.4-10.2) mg/dL Magnesium 2.0 (1.6-2.3) mg/dL Total Bilirubin 0.5 (0.2-1.3) mg/dL AST 30 (14-36) U/L ALT 26 (4-34) U/L Alkaline Phosphatase 54 (38-126) U/L Creatine Kinase 175 H (30-135) U/L Troponin I (0.000-0.034) ng/mL NT-Pro-B Natriuret Pep pg/mL Total Protein 6.9 (6.3-8.2) g/dL Albumin 4.3 (3.5-5.0) g/dL TSH <0.015 L (0.465-4.680) mIU/L Free T4 2.17 (0.78-2.19) ng/dL Urine Color Urine Appearance (Clear) Urine pH (5.0-8.0) Ur Specific [place] (1.001-1.035) Urine Protein (Negative) Urine Glucose (UA) (Negative) Urine Ketones (Negative) Urine Blood (Negative) Urine Nitrite (Negative) Urine Bilirubin (Negative) Urine Urobilinogen (<2.0) mg/dL Ur Leukocyte Esterase (Negative) 06/30/20 06/30/20 06/30/20 Range/Units 21:25 21:25 21:25 WBC (3.8-10.6) k/uL RBC (3.80-5.40) m/uL Hgb (11.4-16.0) gm/dL Hct (34.0-46.0) % MCV (80.0-100.0) fL MCH (25.0-35.0) pg MCHC (31.0-37.0) g/dL RDW (11.5-15.5) % Plt Count (150-450) k/uL MPV Neutrophils % % Lymphocytes % % Monocytes % % Eosinophils % % Basophils % % Neutrophils # (1.3-7.7) k/uL Lymphocytes # (1.0-4.8) k/uL Monocytes # (0-1.0) k/uL Eosinophils # (0-0.7) k/uL Basophils # (0-0.2) k/uL PT (9.0-12.0) sec INR (<1.2) APTT (22.0-30.0) sec Sodium (137-145) mmol/L Potassium (3.5-5.1) mmol/L Chloride (98-107) mmol/L Carbon Dioxide (22-30) mmol/L Anion Gap mmol/L BUN (7-17) mg/dL Creatinine (0.52-1.04) mg/dL Est GFR (CKD-EPI)AfAm (>60 ml/min/1.73 sqM) Est GFR (CKD-EPI)NonAf (>60 ml/min/1.73 sqM) Glucose (74-99) mg/dL Plasma Lactic Acid Xander 1.1 (0.7-2.0) mmol/L Calcium (8.4-10.2) mg/dL Magnesium (1.6-2.3) mg/dL Total Bilirubin (0.2-1.3) mg/dL AST (14-36) U/L ALT (4-34) U/L Alkaline Phosphatase (38-126) U/L Creatine Kinase (30-135) U/L Troponin I <0.012 (0.000-0.034) ng/mL NT-Pro-B Natriuret Pep 62 pg/mL Total Protein (6.3-8.2) g/dL Albumin (3.5-5.0) g/dL TSH (0.465-4.680) mIU/L Free T4 (0.78-2.19) ng/dL Urine Color Urine Appearance (Clear) Urine pH (5.0-8.0) Ur Specific [place] (1.001-1.035) Urine Protein (Negative) Urine Glucose (UA) (Negative) Urine Ketones (Negative) Urine Blood (Negative) Urine Nitrite (Negative) Urine Bilirubin (Negative) Urine Urobilinogen (<2.0) mg/dL Ur Leukocyte Esterase (Negative) 06/30/20 Range/Units 22:32 WBC (3.8-10.6) k/uL RBC (3.80-5.40) m/uL Hgb (11.4-16.0) gm/dL Hct (34.0-46.0) % MCV (80.0-100.0) fL MCH (25.0-35.0) pg MCHC (31.0-37.0) g/dL RDW (11.5-15.5) % Plt Count (150-450) k/uL MPV Neutrophils % % Lymphocytes % % Monocytes % % Eosinophils % % Basophils % % Neutrophils # (1.3-7.7) k/uL Lymphocytes # (1.0-4.8) k/uL Monocytes # (0-1.0) k/uL Eosinophils # (0-0.7) k/uL Basophils # (0-0.2) k/uL PT (9.0-12.0) sec INR (<1.2) APTT (22.0-30.0) sec Sodium (137-145) mmol/L Potassium (3.5-5.1) mmol/L Chloride (98-107) mmol/L Carbon Dioxide (22-30) mmol/L Anion Gap mmol/L BUN (7-17) mg/dL Creatinine (0.52-1.04) mg/dL Est GFR (CKD-EPI)AfAm (>60 ml/min/1.73 sqM) Est GFR (CKD-EPI)NonAf (>60 ml/min/1.73 sqM) Glucose (74-99) mg/dL Plasma Lactic Acid Xander (0.7-2.0) mmol/L Calcium (8.4-10.2) mg/dL Magnesium (1.6-2.3) mg/dL Total Bilirubin (0.2-1.3) mg/dL AST (14-36) U/L ALT (4-34) U/L Alkaline Phosphatase (38-126) U/L Creatine Kinase (30-135) U/L Troponin I (0.000-0.034) ng/mL NT-Pro-B Natriuret Pep pg/mL Total Protein (6.3-8.2) g/dL Albumin (3.5-5.0) g/dL TSH (0.465-4.680) mIU/L Free T4 (0.78-2.19) ng/dL Urine Color Colorless Urine Appearance Clear (Clear) Urine pH 6.5 (5.0-8.0) Ur Specific [place] 1.006 (1.001-1.035) Urine Protein Negative (Negative) Urine Glucose (UA) Negative (Negative) Urine Ketones 1+ H (Negative) Urine Blood Negative (Negative) Urine Nitrite Negative (Negative) Urine Bilirubin Negative (Negative) Urine Urobilinogen <2.0 (<2.0) mg/dL Ur Leukocyte Esterase Negative (Negative) - EKG Data EKG Comments: EKG demonstrates normal sinus rhythm with a ventricular rate of 74. ID interval 154. QRS 130. QTC of 439. There is a left bundle branch block present. Negative for her sgarbossa criteria. Disposition Clinical Impression: Syncope and collapse, LBBB (left bundle branch block) Disposition: ADMITTED IP TO THIS HOSP Condition: Stable Is patient prescribed a controlled substance at d/c from ED?: No Decision to Admit Reason: Admit from EC Decision Date: 06/30/20 Decision Time: 23:04
[2020-06-30 21:35] LABS: Basophils # (A) 0.1 k/uL (0-0.2); Basophils % (A) 1 %; Eosinophils # (A) 0.2 k/uL (0-0.7); Eosinophils % (A) 3 %; HCT 37.3 % (34.0-46.0); HGB 12.8 gm/dL (11.4-16.0); Lymphocytes # (A) 1.7 k/uL (1.0-4.8); Lymphocytes % (A) 31 %; MCH 30.5 pg (25.0-35.0); MCHC 34.4 g/dL (31.0-37.0); MCV 88.7 fL (80.0-100.0); Monocytes # (A) 0.4 k/uL (0-1.0); Monocytes % (A) 7 %; Neutrophils % (A) 55 %; Platelet Count 267 k/uL (150-450); RDW 12.6 % (11.5-15.5); WBC 5.5 k/uL (3.8-10.6)
[2020-06-30 21:44] LABS: Chloride 100 mmol/L (98-107); Sodium 134 mmol/L (137-145)
[2020-06-30 21:46] LABS: ALT 26 U/L (4-34); AST 30 U/L (14-36); African American GFR (CKD) >90 (>60 ml/min/1.73 sqM); Albumin 4.3 g/dL (3.5-5.0); Alkaline Phosphatase 54 U/L (38-126); Anion Gap 6 mmol/L; Blood Urea Nitrogen 25 mg/dL (7-17); Calcium 9.8 mg/dL (8.4-10.2); Carbon Dioxide 28 mmol/L (22-30); Creatine Kinase 175 U/L (30-135); Glucose 107 mg/dL (74-99); Non-African American GFR(CKD) 90 (>60 ml/min/1.73 sqM); Total Bilirubin 0.5 mg/dL (0.2-1.3); Total Protein 6.9 g/dL (6.3-8.2)
[2020-06-30 21:47] LABS: Partial Thromboplastin Time 22.6 sec (22.0-30.0); Prothrombin Time 10.6 sec (9.0-12.0)
--- NOTE | 2020-06-30 21:56 | XR ---
EXAMINATION TYPE: XR chest 2V DATE OF EXAM: 06/30/2020 COMPARISON: NONE HISTORY: Weakness TECHNIQUE: 2 views FINDINGS: Heart and mediastinum are normal. Lungs are clear. Diaphragm is normal. Bony thorax appears normal. There are chest leads. IMPRESSION: Normal chest.
[2020-06-30 22:37] LABS: Appearance,Urine Clear (Clear); Bilirubin,Urine Negative (Negative); Blood,Urine Negative (Negative); Color,Urine Colorless; Glucose,Urine (UA) Negative (Negative); Ketones,Urine 1+ (Negative); Leukocyte Esterase,Urine Negative (Negative); Nitrite,Urine Negative (Negative); PH, Urine 6.5 (5.0-8.0); Protein,Urine Negative (Negative); Specific Gravity,Urine 1.006 (1.001-1.035); Urobilinogen,Urine <2.0 mg/dL (<2.0)
[2020-06-30 22:58] LABS: T4, Free (Free Thyroxine) 2.17 ng/dL (0.78-2.19)
[2020-06-30] MEDS ORDERED: NALOXONE 0.4 MG/ML 1 ML VIAL IV PRN (23:04)
[2020-07-01 05:30] LABS: Basophils % (A) 1 %; Eosinophils # (A) 0.1 k/uL (0-0.7); Eosinophils % (A) 4 %; HCT 37.4 % (34.0-46.0); HGB 11.8 gm/dL (11.4-16.0); Lymphocytes # (A) 1.5 k/uL (1.0-4.8); Lymphocytes % (A) 40 %; MCH 28.9 pg (25.0-35.0); MCHC 31.6 g/dL (31.0-37.0); MCV 91.4 fL (80.0-100.0); Mean Platelet Volume 8.4; Monocytes # (A) 0.3 k/uL (0-1.0); Monocytes % (A) 8 %; Neutrophils # (A) 1.6 k/uL (1.3-7.7); Neutrophils % (A) 44 %; Platelet Count 258 k/uL (150-450); RBC 4.09 m/uL (3.80-5.40); RDW 12.7 % (11.5-15.5); WBC 3.7 k/uL (3.8-10.6)
[2020-07-01 05:49] LABS: African American GFR (CKD) >90 (>60 ml/min/1.73 sqM); Blood Urea Nitrogen 19 mg/dL (7-17); Calcium 9.6 mg/dL (8.4-10.2); Carbon Dioxide 25 mmol/L (22-30); Glucose 85 mg/dL (74-99); Non-African American GFR(CKD) >90 (>60 ml/min/1.73 sqM); Potassium 4.3 mmol/L (3.5-5.1); Sodium 137 mmol/L (137-145)
[2020-07-01 06:58] LABS: Anion Gap 6 mmol/L; Chloride 106 mmol/L (98-107)
[2020-07-01 09:40] VITALS: RESP 16
--- NOTE | 2020-07-01 11:43 | US ---
EXAMINATION TYPE: US carotid duplex BILAT DATE OF EXAM: 07/01/2020 COMPARISON: NONE CLINICAL HISTORY: Syncope. syncope EXAM MEASUREMENTS: RIGHT: Peak Systolic Velocity (PSV) cm/sec ----- Right CCA: 120 ----- Right ICA: 193 ----- Right ECA: 160 ICA/CCA ratio: 1.6 RIGHT: End Diastole cm/sec ----- Right CCA: 29.2 ----- Right ICA: 59.7 ----- Right ECA: 28.4 LEFT: Peak Systolic Velocity (PSV) cm/sec ----- Left CCA: 110 ----- Left ICA: 194 ----- Left ECA: 245 ICA/CCA ratio: 1.8 LEFT: End Diastole cm/sec ----- Left CCA: 32.0 ----- Left ICA: 46.6 ----- Left ECA: 25.5 VERTEBRALS (direction of flow): Right Vertebral: Antegrade Left Vertebral: Antegrade Rhythm: Normal Mild plaque bilateral bifurcations. Tortuous bilateral ICA's. Elevated velocities bilateral ICA's and ECA's Intimal thickening is present. Turbulent flow is evident within the Doppler waveforms. Velocities ar e elevated. Focal stenosis not identified. IMPRESSION: 1. Elevated velocities of the internal carotid arteries bilaterally with turbulent waveforms suggest [place] for narrowing between 50 and 69% internal carotid arteries each side. Criteria for Assigning % of Stenosis / Diameter reduction (Estimation based on the indirect measurements of the internal carotid artery velocities (ICA PSV). 1. Normal (no stenosis)=ICA PSV < 125 cm/s: ratio < 2.0: ICA EDV<40 cm/s. 2. Less than 50% stenosis=ICA PSV < 125 cm/s: ratio < 2.0: ICA EDV<40 cm/s. 3. 50 to 69% stenosis=ICA PSV of 125 to 230 cm/s: ration 2.0 ? 4.0: ICA EDV 40-100 cm/s. 4. Greater than 70% stenosis to near occlusion= ICA PSV > 230 cm/s: ratio > 4.0: ICA EDV > 100 cm/s. 5. Near occlusion= ICA PSV velocities may be low or undetectable: variable ratio and ICA EDV. 6. Total occlusion=unable to detect flow.
[2020-07-01 15:04] VITALS: BP 124/71; PULSE 81; TEMP 97.7
--- NOTE | 2020-07-01 15:10 | P.GSCN ---
History of Present Illness History of present illness: 69-year-old white female, had an episode of confusion and dizziness at home. Patient had a covert positive for a month ago patient has been admitted for further evaluation no history of TIA and the psoas patient had a carotid ultrasound which showed 50-69% stenosis Neck examination neck is supple no bruit appreciated Chest is clear first and second sound normal good entry both lungs Abdomen soft nontender Vascular examination brachial radial femoral pulses are present Center system patient has normal motor function of upper and lower extremity Ultrasound shows 50 629% stenosis bilateral Plan is at this point is no indication for any surgical intervention as fast carotid is concerned patient is stable from a vascular point of view advised follow-up in my office in a month's time Past Medical History Past Medical History: Eye Disorder, Osteoarthritis (OA), Thyroid Disorder Additional Past Medical History / Comment(s): Pt states she recently had bilateral eye retinal problems (R retina started to tear but readhered itself and L retina started to tear and developed a hole in it but she was told it was healing), arthritis in multiple joints, spur in R ankle, sciatica R side with R foot numbness and R leg spasms. osteomyelitis, cellulitis from cat bite on left thumb. History of Any Multi-Drug Resistant Organisms: None Reported Past Surgical History: Breast Surgery, Joint Replacement, Orthopedic Surgery Additional Past Surgical History / Comment(s): Bilateral breast reduction, abdominoplasty, L carpal tunnel release, L knee arthroscopy, Lt knee "partial replacement." Past Anesthesia/Blood Transfusion Reactions: Family History of Problems w/ Anesthesia, Motion Sickness, Postoperative Nausea & Vomiting (PONV) Additional Past Anesthesia/Blood Transfusion Reaction / Comm: mother had problems in 1970s got "hepatitis from the anethesia" Past Psychological History: No Psychological Hx Reported Smoking Status: Former smoker, Never smoker Past Alcohol Use History: Rare Past Drug Use History: None Reported - Past Family History Father History Unknown: Yes Mother Additional Family Medical History / Comment(s): Mother had hepatitis d/t a complication with anesthesia, she also had ulcers. Brother(s) Family Medical History: Cancer Medications and Allergies Home Medications Medication Instructions Recorded Confirmed Type Aspirin EC [Ecotrin Low Dose] 362 mg PO DAILY 06/30/20 06/30/20 History Thyroid,Pork [[place] Thyroid] 90 mg PO DAILY 06/30/20 06/30/20 History Allergies Allergy/AdvReac Type Severity Reaction Status Date / Time aspirin AdvReac STOMACH Verified 06/30/20 22:44 PAIN, LOW DOSE EC OK Surgical - Exam Vital Signs Temp Pulse Resp BP Pulse Ox 98.4 F 84 16 158/74 98 06/30/20 21:00 06/30/20 21:00 06/30/20 21:00 06/30/20 21:00 06/30/20 21:00 Results - Labs 07/01/20 05:02 07/01/20 05:02 Abnormal Lab Results - Last 24 Hours (Table) 06/30/20 06/30/20 07/01/20 Range/Units 21:25 22:32 05:02 WBC 3.7 L (3.8-10.6) k/uL Sodium 134 L (137-145) mmol/L BUN 25 H (7-17) mg/dL Glucose 107 H (74-99) mg/dL Creatine Kinase 175 H (30-135) U/L TSH <0.015 L (0.465-4.680) mIU/L Urine Ketones 1+ H (Negative) 07/01/20 Range/Units 05:02 WBC (3.8-10.6) k/uL Sodium (137-145) mmol/L BUN 19 H (7-17) mg/dL Glucose (74-99) mg/dL Creatine Kinase (30-135) U/L TSH (0.465-4.680) mIU/L Urine Ketones (Negative) Diabetes panel 06/30/20 07/01/20 Range/Units 21:25 05:02 Sodium 134 L 137 (137-145) mmol/L Potassium 4.0 4.3 (3.5-5.1) mmol/L Chloride 100 106 (98-107) mmol/L Carbon Dioxide 28 25 (22-30) mmol/L BUN 25 H 19 H (7-17) mg/dL Creatinine 0.67 0.61 (0.52-1.04) mg/dL Glucose 107 H 85 (74-99) mg/dL Calcium 9.8 9.6 (8.4-10.2) mg/dL AST 30 (14-36) U/L ALT 26 (4-34) U/L Alkaline Phosphatase 54 (38-126) U/L Total Protein 6.9 (6.3-8.2) g/dL Albumin 4.3 (3.5-5.0) g/dL Thyroid panel 06/30/20 Range/Units 21:25 TSH <0.015 L (0.465-4.680) mIU/L Calcium panel 06/30/20 07/01/20 Range/Units 21:25 05:02 Calcium 9.8 9.6 (8.4-10.2) mg/dL Albumin 4.3 (3.5-5.0) g/dL Pituitary panel 06/30/20 07/01/20 Range/Units 21:25 05:02 Sodium 134 L 137 (137-145) mmol/L Potassium 4.0 4.3 (3.5-5.1) mmol/L Chloride 100 106 (98-107) mmol/L Carbon Dioxide 28 25 (22-30) mmol/L BUN 25 H 19 H (7-17) mg/dL Creatinine 0.67 0.61 (0.52-1.04) mg/dL Glucose 107 H 85 (74-99) mg/dL Calcium 9.8 9.6 (8.4-10.2) mg/dL TSH <0.015 L (0.465-4.680) mIU/L Adrenal panel 06/30/20 07/01/20 Range/Units 21:25 05:02 Sodium 134 L 137 (137-145) mmol/L Potassium 4.0 4.3 (3.5-5.1) mmol/L Chloride 100 106 (98-107) mmol/L Carbon Dioxide 28 25 (22-30) mmol/L BUN 25 H 19 H (7-17) mg/dL Creatinine 0.67 0.61 (0.52-1.04) mg/dL Glucose 107 H 85 (74-99) mg/dL Calcium 9.8 9.6 (8.4-10.2) mg/dL Total Bilirubin 0.5 (0.2-1.3) mg/dL AST 30 (14-36) U/L ALT 26 (4-34) U/L Alkaline Phosphatase 54 (38-126) U/L Total Protein 6.9 (6.3-8.2) g/dL Albumin 4.3 (3.5-5.0) g/dL
--- NOTE | 2020-07-01 16:11 | P.CRDCN ---
History of Present Illness Consult date: 07/01/20 History of present illness: This is a 69-year-old female with history of hypothyroidism who suffered COVID infection would a month ago. Recently patient has been feeling weak and tired. Patient was seen by primary care physician and noted that she developed a new left bundle branch block compared to the EKG 4 years ago. She was scheduled to have some testing done at the hospital including echocardiogram. Patient went home and apparently was not feeling well. She went and to sit in a rocking chair and apparently within short time, She found herself hanging on one side of the chair. She thinks she might have lost consciousness for a few seconds. Subsequently, the called primary care physician and was subsequently brought to the emergency room. She wants to go home and she is feeling good today. She was feeling some dizzy necessary home. Since admission patient hasn't shown any cardiac arrhythmias. Echo Cardigan showed normal LV function. Carotid duplex study showed bilateral 50-69% stenosis. Patient was seen by vascular surgeon and cleared for discharge. It is possible that patient may have underlying ischemic heart disease but with no overt manifestations. We'll going to discharge her with a plan for event monitor and further cardiac evaluation as an outpatient. Review of Systems As per the chart Past Medical History Past Medical History: Eye Disorder, Osteoarthritis (OA), Thyroid Disorder Additional Past Medical History / Comment(s): Pt states she recently had bilateral eye retinal problems (R retina started to tear but readhered itself and L retina started to tear and developed a hole in it but she was told it was healing), arthritis in multiple joints, spur in R ankle, sciatica R side with R foot numbness and R leg spasms. osteomyelitis, cellulitis from cat bite on left thumb. History of Any Multi-Drug Resistant Organisms: None Reported Past Surgical History: Breast Surgery, Joint Replacement, Orthopedic Surgery Additional Past Surgical History / Comment(s): Bilateral breast reduction, abdominoplasty, L carpal tunnel release, L knee arthroscopy, Lt knee "partial replacement." Past Anesthesia/Blood Transfusion Reactions: Family History of Problems w/ Anesthesia, Motion Sickness, Postoperative Nausea & Vomiting (PONV) Additional Past Anesthesia/Blood Transfusion Reaction / Comment(s): mother had problems in 1970's got "hepatitis from the anethesia" Past Psychological History: No Psychological Hx Reported Smoking Status: Former smoker, Never smoker Past Alcohol Use History: Rare Past Drug Use History: None Reported - Past Family History Father History Unknown: Yes Mother Additional Family Medical History / Comment(s): Mother had hepatitis d/t a complication with anesthesia, she also had ulcers. Brother(s) Family Medical History: Cancer Medications and Allergies Home Medications Medication Instructions Recorded Confirmed Type Aspirin EC [Ecotrin Low Dose] 362 mg PO DAILY 06/30/20 06/30/20 History Thyroid,Pork [[place] Thyroid] 90 mg PO DAILY 06/30/20 06/30/20 History Allergies Allergy/AdvReac Type Severity Reaction Status Date / Time aspirin AdvReac STOMACH Verified 06/30/20 22:44 PAIN, LOW DOSE EC OK Physical Exam Vitals: Vital Signs Temp Pulse Pulse Pulse Pulse Pulse Resp 07/01/20 14:00 97.7 F 81 16 07/01/20 11:23 87 87 87 07/01/20 08:00 96.7 F L 78 16 07/01/20 02:00 98.0 F 97 18 06/30/20 23:40 97.2 F L 82 18 06/30/20 21:00 98.4 F 84 16 BP BP BP BP BP BP Pulse Ox 07/01/20 14:00 124/71 97 07/01/20 11:23 164/78 149/78 143/80 07/01/20 08:00 130/62 96 07/01/20 02:00 124/68 97 06/30/20 23:40 160/68 99 06/30/20 21:00 158/74 98 Intake and Output 07/01/20 07/01/20 07/01/20 06:59 14:59 22:59 Intake Total 100 Balance 100 Intake: Oral 100 Other: # Voids 1 1 Weight 59.421 kg GENERAL EXAM: Patient is alert and oriented and doesn't appear to be in any acute distress HEENT: Normocephalic. Normal reaction of pupils, equal size, normal range of extraocular motion. No erythema or exudates in the throat. NECK: No masses, no nuchal rigidity. CHEST: No chest wall deformity. LUNGS: Equal air entry with no crackles or wheeze. HEART: S1 and S2 normal with no audible mumurs or gallops. Regular rhythm, femorals equal on both sides.. ABDOMEN: No hepatosplenomegaly, normal bowel sounds, no guarding or rigidity. SKIN: No rashes CENTRAL NERVOUS SYSTEM: No focal deficits. EXTREMITIES: No cyanosis, clubbing or edema. Results 07/01/20 05:02 07/01/20 05:02 Cardiac Enzymes 06/30/20 06/30/20 07/01/20 Range/Units 21:25 21:25 00:17 AST 30 (14-36) U/L Troponin I <0.012 <0.012 (0.000-0.034) ng/mL 07/01/20 Range/Units 05:02 AST (14-36) U/L Troponin I <0.012 (0.000-0.034) ng/mL Coagulation 06/30/20 Range/Units 21:25 PT 10.6 (9.0-12.0) sec APTT 22.6 (22.0-30.0) sec CBC 06/30/20 07/01/20 Range/Units 21:25 05:02 WBC 5.5 3.7 L (3.8-10.6) k/uL RBC 4.20 4.09 (3.80-5.40) m/uL Hgb 12.8 11.8 (11.4-16.0) gm/dL Hct 37.3 37.4 (34.0-46.0) % Plt Count 267 258 (150-450) k/uL Comprehensive Metabolic Panel 06/30/20 07/01/20 Range/Units 21:25 05:02 Sodium 134 L 137 (137-145) mmol/L Potassium 4.0 4.3 (3.5-5.1) mmol/L Chloride 100 106 (98-107) mmol/L Carbon Dioxide 28 25 (22-30) mmol/L BUN 25 H 19 H (7-17) mg/dL Creatinine 0.67 0.61 (0.52-1.04) mg/dL Glucose 107 H 85 (74-99) mg/dL Calcium 9.8 9.6 (8.4-10.2) mg/dL AST 30 (14-36) U/L ALT 26 (4-34) U/L Alkaline Phosphatase 54 (38-126) U/L Total Protein 6.9 (6.3-8.2) g/dL Albumin 4.3 (3.5-5.0) g/dL Current Medications Generic Name Dose Route Start Last Admin Trade Name Sudha PRN Reason Stop Dose Admin Naloxone HCl 0.2 mg 06/30/20 23:04 Naloxone 0.4 Mg/Ml 1 Ml Vial IV Q2M PRN Opioid Reversal Intake and Output 07/01/20 07/01/20 07/01/20 06:59 14:59 22:59 Intake Total 100 Balance 100 Intake: Oral 100 Other: # Voids 1 1 Weight 59.421 kg 07/01/20 05:02 07/01/20 05:02 EKG Interpretations (text) Sinus rhythm with evidence of left bundle-branch block pattern Assessment and Plan (1) Carotid disease, bilateral Current Visit: Yes Status: Acute Code(s): I77.9 - DISORDER OF ARTERIES AND ARTERIOLES, UNSPECIFIED SNOMED Code(s): 099017371 (2) LBBB (left bundle branch block) Current Visit: Yes Status: Acute Code(s): I44.7 - LEFT BUNDLE-BRANCH BLOCK, UNSPECIFIED SNOMED Code(s): 83515920 (3) Syncope and collapse Current Visit: Yes Status: Acute Code(s): R55 - SYNCOPE AND COLLAPSE SNOM ED Code(s): 289482390 Plan: Continue to monitor her with event monitor. Patient may need a pharmacological stress test as an outpatient. As patient insists on going home, she is being discharged home. Outpatient evaluation in about a week to 10 days.
--- NOTE | 2020-07-01 16:19 | ECHOF ---
Referral Reason:syncope, new lbbb MEASUREMENTS -------- HEIGHT: 157.5 cm WEIGHT: 59.4 kg BP: IVSd: 1.2 cm (0.6 - 1.1) LVIDd: 3.7 cm (3.9 - 5.3) LVPWd: 0.9 cm (0.6 - 1.1) IVSs: 1.5 cm LVIDs: 2.6 cm LVPWs: 1.4 cm LAESV Index (A-L): 25.07 ml/m Ao Diam: 2.3 cm (2.0 - 3.7) AV Cusp: 1.6 cm (1.5 - 2.6) MV EXCURSION: 11.562 mm (> 18.000) MV EF SLOPE: 53 mm/s (70 - 150) EPSS: 0.5 cm MV E Mehrdad: 0.62 m/s MV DecT: 281 ms MV A Mehrdad: 0.80 m/s MV E/A Ratio: 0.78 RAP: 5.00 mmHg RVSP: 26.04 mmHg FINDINGS -------- BBB This was a technically adequate study. The left ventricular size is normal. There is mild concentric left ventricular hypertrophy. Overa ll left ventricular systolic function is low-normal with, an EF between 50 - 55 %. The right ventricle is normal in size. Normal LA size by volume 22+/-6 ml/m2. The right atrial size is normal. The aortic valve is trileaflet, and appears structurally normal. No aortic stenosis or regurgitation. Mild mitral regurgitation is present. Mild tricuspid regurgitation present. Right ventricular systolic pressure is normal at < 35 mmHg. There is no pulmonic regurgitation present. The aortic root size is normal. There is no pericardial effusion. CONCLUSIONS -------- 1. The left ventricular size is normal. 2. There is mild concentric left ventricular hypertrophy. 3. Overall left ventricular systolic function is low-normal with, an EF between 50 - 55 %. 4. The right ventricle is normal in size. 5. Normal LA size by volume 22+/-6 ml/m2. 6. The right atrial size is normal. 7. Mild mitral regurgitation is present. 8. Mild tricuspid regurgitation present. 9. There is no pulmonic regurgitation present. 10. The aortic root size is normal. 11. There is no pericardial effusion. CAREER ADVISOR: Amber Dennis RDCS
== END 2020-07-01 17:49 | disposition home or self-care (01) ==
LOC: EC 20:55 → 6NMEDSUR 23:04
PROVIDERS: ADMIT Hospitalist; ATTEND Hospitalist
DX: R53.1 Weakness (principal); R55 Syncope and collapse; I44.7 Left bundle-branch block, unspecified; R42 Dizziness and giddiness; E03.9 Hypothyroidism, unspecified; I65.23 Occlusion and stenosis of bilateral carotid arteries; M19.90 Unspecified osteoarthritis, unspecified site; M54.31 Sciatica, right side; R20.0 Anesthesia of skin; R25.2 Cramp and spasm; Z86.16 Personal history of COVID-19; Z86.19 Personal history of other infectious and parasitic diseases; Z87.891 Personal history of nicotine dependence; Z79.82 Long term (current) use of aspirin; Z79.890 Hormone replacement therapy; Z88.6 Allergy status to analgesic agent; Z80.9 Family history of malignant neoplasm, unspecified; Z83.79 Family history of other diseases of the digestive system; Z84.89 Family history of other specified conditions
CPT/HCPCS: 93005; 99285; 36415; 93306; 84439; 83880; 80053; 80048; 84443; 82550; 83605; 83735; 84484 ×2; 85025 ×2; 85610; 85730; 81003; 71046; 93880; G0378 ×2

== ENCOUNTER → 2020-07-11 | Outpatient (CLI) | payer MEDICARE ==
[~2020-07-11] MED LIST changes: -LIDOCAINE 2% INJ 20 MG/ML SQ ONE; +REGADENOSON 0.4 MG/5 ML SYRINGE IV PRN
--- NOTE | 2020-07-11 08:47 | CT ---
EXAMINATION TYPE: CT brain wo/w con DATE OF EXAM: 07/11/2020 COMPARISON: None INDICATION: syncope DLP: 2072 mGycm, Automated exposure control for dose reduction was used. CONTRAST: None CT of the brain is performed utilizing 3 mm thick sections through the posterior fossa and 3 mm thick sections through the remaining calvarium. Study is performed within 24 hours of arrival to the hosp [facility]. No abnormal hyperdensity is present to suggest an acute intracranial hemorrhage. No mass lesion is evident. No acute infarcts are evident. Mild periventricular white matter hypodensity may be present, likely o n the basis of chronic white matter ischemic changes. Ventricles and sulci are appropriate for the patient age. The right A1 segment appears hypoplastic. No abnormal enhancement is evident within the brain. Paranasal sinuses and mastoid air cells within the [id number] are clear. IMPRESSIONS: 1. Normal pre and postcontrast CT brain
--- NOTE | 2020-07-11 11:02 | P.STRESS ---
- Stress Test Note Stress Test Results/Findings: Exam Performed: NM stress lexiscan cardiolite Exam Date: 07/11/20 Reason for Exam: Palpitations Height: 5 ft 2 in Weight: 55.792 kg Protocol: Lexiscan Stage: na Duration of Exercise: na Resting Heart Rate: 78 Resting Blood Pressure: 150/68 Maximum Achieved Heart Rate: 90 Maximum Achieved Blood Pressure: 150/68 85% PMHR: 128 100% PMHR: 150 METS: na Technologist Comment: Stress Test Results/Findings: This is a 69-year-old female being evaluated for cardiac status because of symptoms of palpitation and abnormal EKG. Patient also has family history of ischemic heart disease. Stress data: Baseline EKG showed sinus rhythm with evidence of left bundle- branch block pattern. Blood pressure at rest is 150/68 with pulse rate of 78. A standard dose of Lexiscan was infused. EKG continued to show left bundle- branch block pattern. Final impression: #1. Nondiagnostic Lexiscan stress test because of baseline left bundle branch block #2. Report on the nuclear images to be given by the radiologist
--- NOTE | 2020-07-11 13:50 | NM ---
EXAMINATION TYPE: NM stress lexiscan cardiolite DATE OF EXAM: 07/11/2020 COMPARISON: NONE HISTORY: Palpitations, R00.2 TECHNIQUE: After the intravenous administration of 10.23 mCi Tc 99m Sestamibi - Cardiolite resting S PECT images acquired 50 minutes post injection. The patient received 0.4mg Lexiscan, 25.7 mCi Tc 99m Sestamibi - Stress images obtained [address] injection FINDINGS: Review of stress and rest SPECT images demonstrates no distinct perfusion abnormality. Gated analysi s shows normal wall motion with an estimated left ventricular ejection fraction of 61 %. IMPRESSION: No scintigraphic evidence for reversible ischemia.
== END | disposition home or self-care (01) ==
LOC: RADCTMAIN 07:54
PROVIDERS: ATTEND Family Medicine
DX: R55 Syncope and collapse (principal); R00.2 Palpitations; I44.7 Left bundle-branch block, unspecified
CPT/HCPCS: 93017; 93270; 70470; 78452; A9500; J2785; Q9967

== ENCOUNTER → 2020-07-21 | Outpatient (CLI) | payer MEDICARE ==
[2020-07-21 12:09] LABS: Glucose 2 Hour 146 mg/dL
[2020-07-21 17:17] LABS: Hemoglobin A1C 5.7 % (4.0-6.0)
== END | disposition home or self-care (01) ==
LOC: LABWHC1 08:19
PROVIDERS: ATTEND Family Medicine
DX: E16.2 Hypoglycemia, unspecified (principal)
CPT/HCPCS: 36415; 82947; 82950; 83036

== ENCOUNTER → 2020-07-26 | Outpatient (CLI) | payer MEDICARE ==
--- NOTE | 2020-07-26 17:03 | EEG ---
ELECTROENCEPHALOGRAM REPORT DATE OF SERVICE: 07/26/2020. CLINICAL HISTORY: This is a 69-year-old woman with reported history of COVID-19 positive on June 22, 2020, and since then the patient has been having recurrent episodes of dizziness as well as loss of consciousness lasting for a few seconds. The video EEG is obtained to evaluate for seizure and epileptiform activity. RELEVANT MEDICATION: Unknown. EEG TYPE: A routine 21-channel is performed with video using the 10/20 electrode system. DESCRIPTION: Wakefulness and drowsiness are obtained. During wakefulness, there is a posterior- dominant rhythm of low to moderate voltage, reactive of 8.5 to 9 hertz activity. During drowsiness there is slowing and attenuation of the background activity. There is no physiological stage II sleep. There are rare 1.5 hertz of moderate to high voltage of generalized rhythmic delta activity with frontal predominance. There is no focal slowing. Interictal and ictal: None. ACTIVATION PROCEDURE: Photic stimulation did not evoke a posterior driving response. There is no abnormality during the photic stimulation seen. Hyperlipidemia is not performed. CLINICAL INTERPRETATION: This is a normal routine EEG. There is no focal slowing, epileptiform discharges or seizure on the EEG. Clinical correlation is recommended. LEONA / IJN: [id number] / [email or web address]
== END | disposition home or self-care (01) ==
LOC: NEUROMAIN 10:22
PROVIDERS: ATTEND Family Medicine
DX: R55 Syncope and collapse (principal)
CPT/HCPCS: 95816

== ENCOUNTER → 2020-08-03 | Outpatient (CLI) | payer MEDICARE | END | disposition home or self-care (01) | LOC: LABWHC1 08:36 | PROVIDERS: ATTEND Internal Medicine Endocrinology, Diabetes & Metabolism | DX: E03.8 Other specified hypothyroidism (principal) | CPT/HCPCS: 36415; 84439; 84443; 84481 ==

== ENCOUNTER → 2020-08-03 | Outpatient (CLI) | payer MEDICARE ==
--- NOTE | 2020-08-03 16:13 | MR ---
EXAMINATION TYPE: MR brain wo/w con DATE OF EXAM: 08/03/2020 COMPARISON: CT brain July 11, 2020. HISTORY: Dizziness, fainting TECHNIQUE: Multiplanar, multisequence images of the brain and brainstem is performed without and with IV contras t, utilizing 6 mL intravenous Gadavist . FINDINGS: Diffusion weighted images demonstrate no evidence of a recent infarct or other diffusion ab normality. There is no extra-axial fluid collection or significant white matter signal abnormality. The ventricular system and cisternal spaces are normal in size and appearance. The brain volume is age appropriate. Midline structures demonstrate normal morphology. The craniocervical junction appears within normal limits. Post contrast images demonstrate no abnormal enhancement. The dural venous sinuses appear pa tent. Artifact distorts at the level of the bilateral globes. Visualized sinuses are clear. No suspic ious fluid signal bilateral mastoid air cells. IMPRESSION: No significant findings are evident.
== END | disposition home or self-care (01) ==
LOC: RADMRIMAIN 09:17
PROVIDERS: ATTEND Family Medicine
DX: R55 Syncope and collapse (principal)
CPT/HCPCS: 70553; A9585

== ENCOUNTER → 2020-09-06 | Outpatient (CLI) | payer MEDICARE | END | disposition home or self-care (01) | LOC: LABWHC1 15:54 | PROVIDERS: ATTEND Family Medicine | DX: Z20.822 Contact with and (suspected) exposure to COVID-19 (principal) | CPT/HCPCS: U0003; C9803; U0005 ==

== ENCOUNTER → 2020-09-13 | Outpatient (CLI) | payer MEDICARE ==
[2020-09-13 21:11] LABS: Chol/HDL Ratio 2.43; LDL Cholesterol,Calculated 113.4 mg/dL (0.0-131.0); VLDL Calculation 12.6 mg/dL (5.00-40.00)
== END | disposition home or self-care (01) ==
LOC: LABWHC1 09:03
PROVIDERS: ATTEND Internal Medicine Cardiovascular Disease
DX: E03.8 Other specified hypothyroidism (principal); I65.23 Occlusion and stenosis of bilateral carotid arteries; R55 Syncope and collapse
CPT/HCPCS: 36415; 80061; 84443; 84450; 84460

== ENCOUNTER → 2021-01-15 | Outpatient (CLI) | payer MEDICARE ==
[2021-01-15 12:27] LABS: Chol/HDL Ratio 2.28; LDL Cholesterol,Calculated 104.8 mg/dL (0.0-131.0); VLDL Calculation 14.2 mg/dL (5.00-40.00)
== END | disposition home or self-care (01) ==
LOC: LABWHC1 07:30
PROVIDERS: ATTEND Internal Medicine Cardiovascular Disease
DX: I65.23 Occlusion and stenosis of bilateral carotid arteries (principal); R55 Syncope and collapse
CPT/HCPCS: 36415; 80061; 84450; 84460

== ENCOUNTER → 2021-04-19 | Outpatient (CLI) | payer MEDICARE | END | disposition home or self-care (01) | LOC: LABWHC1 09:05 | PROVIDERS: ATTEND Internal Medicine Endocrinology, Diabetes & Metabolism | DX: E03.8 Other specified hypothyroidism (principal) | CPT/HCPCS: 36415; 84443 ==

== ENCOUNTER → 2021-11-15 | Outpatient (CLI) | payer MEDICARE | END | disposition home or self-care (01) | LOC: LABWHC1 14:08 | PROVIDERS: ATTEND Internal Medicine Endocrinology, Diabetes & Metabolism | DX: E03.8 Other specified hypothyroidism (principal) | CPT/HCPCS: 36415; 84443 ==

== ENCOUNTER → 2022-01-15 | Outpatient (CLI) | payer MEDICARE ==
--- NOTE | 2022-01-15 16:22 | US ---
EXAMINATION TYPE: US venous doppler duplex LE LT DATE OF EXAM: 01/15/2022 4:09 PM COMPARISON: NONE CLINICAL HISTORY: 71-year-old female I80.9 PHLEBITIS AND THROMBOPHLEBITIS. Left leg pain and swelling , no previous DVT. SIDE PERFORMED: left TECHNIQUE: The lower extremity deep venous system is examined utilizing real time linear array sonog lizette with graded compression, doppler sonography and color-flow sonography. VESSELS IMAGED: Common Femoral Vein Deep Femoral Vein Greater Saphenous Vein * Femoral Vein Popliteal Vein Small Saphenous Vein * Proximal Calf Veins (* superficial vessels) Left Leg: negative for LLE dvt IMPRESSION: No evidence for DVT within the left lower extremity imaged from the groin to the upper calf.
== END | disposition home or self-care (01) ==
LOC: RADUSWWP 15:55
PROVIDERS: ATTEND Orthopaedic Surgery
DX: M17.12 Unilateral primary osteoarthritis, left knee (principal); S83.412D Sprain of medial collateral ligament of left knee, subsequent encounter; I80.9 Phlebitis and thrombophlebitis of unspecified site; Z96.652 Presence of left artificial knee joint; X58.XXXD Exposure to other specified factors, subsequent encounter

== ENCOUNTER → 2022-05-16 | Outpatient (CLI) | payer MEDICARE | END | disposition home or self-care (01) | LOC: LABWHC1 09:36 | PROVIDERS: ATTEND Internal Medicine Endocrinology, Diabetes & Metabolism | DX: E03.8 Other specified hypothyroidism (principal) | CPT/HCPCS: 36415; 84443 ==

== ENCOUNTER → 2022-11-21 | Outpatient (CLI) | payer MEDICARE ==
[2022-11-21 17:04] LABS: T4, Free (Free Thyroxine) 2.32 ng/dL (0.80-1.80)
== END | disposition home or self-care (01) ==
LOC: LABWHC1 12:45
PROVIDERS: ATTEND Internal Medicine Endocrinology, Diabetes & Metabolism
DX: E03.8 Other specified hypothyroidism (principal)
CPT/HCPCS: 36415; 84439; 84443; 84481

== ENCOUNTER → 2023-02-26 | Outpatient (CLI) | payer MEDICARE ==
[2023-02-26 16:39] LABS: ALT 24 U/L (8-44); AST 25 U/L (13-35); BUN/Creat Ratio 20.88 Ratio (12.00-20.00); Blood Urea Nitrogen 16.7 mg/dL (9.0-27.0); Calcium 9.7 mg/dL (8.7-10.3); Carbon Dioxide 27.4 mmol/L (21.6-31.8); Chloride 106 mmol/L (96-109); Chol/HDL Ratio 2.08 Ratio; Glucose 95 mg/dL (70-110); LDL Cholesterol,Calculated 94.9 mg/dL (0.0-131.0); Potassium 4.5 mmol/L (3.5-5.5); Sodium 143 mmol/L (135-145); VLDL Calculation 18.08 mg/dL (5.00-40.00)
== END | disposition home or self-care (01) ==
LOC: LABWHC1 09:06
PROVIDERS: ATTEND Internal Medicine Cardiovascular Disease
DX: I10 Essential (primary) hypertension (principal)
CPT/HCPCS: 36415; 80048; 80061; 84450; 84460